=== PATIENT | female | born 1955 | race Two or more races ===

== ENCOUNTER 2024-05-31 12:51 | Inpatient (IN) | payer OTHER, MEDICARE, SELFPAY ==
[2024-05-31 12:51] VITALS: BP 145/82; PULSE 68; RESP 16; TEMP 36.7; O2SAT 99
--- NOTE | 2024-05-31 12:54 | EDNOTE_ITS ---
ED General RME/HPI General Chief complaint: Extremity Injury, Lower Stated complaint: FALL Time Seen by Provider: 05/31/24 12:54 Arrival date/time: 05/31/24 12:51 RME / HPI RME / HPI narrative: 68-year-old female patient with significant history of hypertension, came in for evaluation regarding ground-level fall. Patient lost balance and fell forward resulting into pain and swelling to the left upper thigh/hip, severity severe. Patient is unable to move due to pain. Patient denies any LOC, denies any neck pain denies any other complaints. No medication was taken prior to arrival. Patient is not taking any blood thinner. Related Data Home Medications ?Medication ?Instructions ?Recorded ?Confirmed hydrochlorothiazide 25 mg tablet 25 mg PO QAM 07/01/20 07/01/20 lisinopril 20 mg tablet 20 mg PO QDAY 07/01/20 07/01/20 metformin 500 mg tablet 500 mg PO BID 07/01/20 07/01/20 zolpidem 10 mg tablet (Ambien) 10 mg PO HS 07/01/20 07/01/20 Previous Rx's ?Medication ?Instructions ?Recorded cyclobenzaprine 5 mg tablet 5 mg PO Q8H #7 tabs 12/31/23 docusate sodium 100 mg capsule 100 mg PO QDAY PRN constipation 12/31/23 (Stool Softener) #30 caps Allergies Allergy/AdvReac Type Severity Reaction Status Date / Time No Known Allergies Allergy Verified 05/31/24 13:25 Review of Systems Review of Systems Narrative Review of Systems: Review of system reviewed and within normal limits except mentioned in HPI ED Exam Narrative Physical exam: VITAL SIGNS: Reviewed. GENERAL APPEARANCE: Alert and interactive, follows commands, no acute distress, HEAD AND FACE: Non-traumatic. ENT: PERRL, pink conjunctivitis, eyelid no trauma, Mucous membrane moist. NECK: Supple, nontender, no nuchal rigidity. CHEST: No tenderness, no crepitus, no paradoxical movement, no retractions. LUNGS: Clear, well ventilated, symmetric, no rales, no wheezing, no ronchi, no stridor, good breath sounds bilaterally. HEART: Regular rate, regular rhythm, no murmur, no gallops. ABDOMEN: Soft, positive bowel sounds, nondistended, no guarding, nontender, no rebound, no masses, RECTAL: Deferred. GENITAL: Deferred. NEUROLOGICAL: Gross motor function intact sensory function intact, Appropriate for age. MUSCULOSKELETAL: low back nontender, full range of motion. EXTREMITIES: Left hip tenderness, externally rotated, and shortened lower extremity, limitation range of motion. SKIN: Color pink, dry, no rash, no lacerations, no abrasions, no contusions. LYMPHATICS: Deferred. Course Quality Measures none Orders Category Date Time Status COVID-19 Screening Questionnaire NOW Care 05/31/24 15:35 Active Decision to Admit X1 Care 05/31/24 15:35 Active EKG (ED ONLY) *Do not use* NOW Care 05/31/24 12:59 Active [place] Routine Care 05/31/24 14:48 Ordered Consult to Orthopedic Stat Cons 05/31/24 14:[address] head/brain wo con Stat Exams 05/31/24 12:58 Completed EKG (ED Only) Stat Exams 05/31/24 12:58 Draft XR chest 1V Stat Exams 05/31/24 12:59 Completed XR femur LT 2V Stat Exams 05/31/24 12:58 Completed XR hip LT w pelvis 2-3V Stat Exams 05/31/24 12:58 Completed B-Type Natriuretic Peptide Stat Lab 05/31/24 14:10 Completed CBC Stat Lab 05/31/24 14:10 Completed Comprehensive Metabolic Panel Stat Lab 05/31/24 14:10 Completed Partial Thromboplastin Time Stat Lab 05/31/24 14:10 Completed Prothrombin Time with INR Stat Lab 05/31/24 14:10 Completed Troponin I Stat Lab 05/31/24 14:10 Completed Urinalysis, C/S if Indicated Stat Lab 05/31/24 12:59 Ordered Morphine Inj Med 05/31/24 13:00 Discontinued 4 mg IVP X1 ONE Morphine Inj Med 05/31/24 15:25 Discontinued 4 mg IVP X1 ONE Ondansetron Odt [Zofran Odt] Med 05/31/24 13:00 Discontinued 4 mg PO X1 ONE Vital Signs Vital signs: Vital Signs Temperature 98.0 F 05/31/24 12:51 Pulse Rate 68 05/31/24 12:51 Respiratory Rate 16 05/31/24 12:51 Blood Pressure 145/82 H 05/31/24 12:51 Pulse Oximetry (%) 99 05/31/24 12:51 Oxygen Delivery Method Room Air 05/31/24 12:51 [facility] Patient data External records reviewed:: None Clinical information provided by:: patient and family Social determinants that could affect healthcare access:: none Patient has the following chronic illnesses:: Hypertension diabetes mellitus How is presenting disease/condition affected by chronic disease/condition?: u neffected by Evaluation data The following diagnostics were reviewed and interpreted by me:: lab results, radiology exam(s) and EKG tracing(s) Lab and/or radiology exams considered but not ordered:: None Interpretation Summary: EKG showed normal sinus rhythm, ventricular rate of 78 bpm, no ST segment elevation or depression noted. Chest x-ray came back unremarkable. Laboratory workup came back unremarkable x-ray of the hip showed intertrochanteric fracture of the left femur. CT scan of the head came back normal. Results discussed with them Medications Medications considered but not ordered:: None 1 Medication administrations:: Medication Administration History Discontinued Medications Morphine Sulfate (Morphine Sulf Inj 10 Mg/Ml Vial) 4 mg IVP X1 ONE Stop: 05/31/24 13:01 Last Admin: 05/31/24 14:07 Dose: 4 mg Documented By: ADDIS Comments: pt unavailable and no access Morphine Sulfate (Morphine Sulf Inj 10 Mg/Ml Vial) 4 mg IVP X1 ONE Stop: 05/31/24 15:26 Ondansetron HCl (Ondansetron Odt 4 Mg Tabrap) 4 mg PO X1 ONE; Protocol Stop: 05/31/24 13:01 Last Admin: 05/31/24 14:08 Dose: 4 mg Documented By: ADDIS Morphine and Zofran Consultations Consultation(s) initiated? (list below): Yes Consultation #1 (Physician, Specialty, Details): Dr. Montoya, orthopedic surgeon on-call, examined the patient in the emergency room Diagnosis Differential Diagnosis ED Complaint MDM: Fall, intertrochanteric fracture left femur, femur fracture Most likely diagnosis given after review of the tests above:: Fall, intertrochanteric fracture left femur Admission Indicated Admission indicated?: indicated Explain why admission is indicated or not indicated:: Patient is to be admitted for further management. Admission Request Was there a request for admission?: Yes Admission Attestation Admission request attestation: Discussed case with [Dr. Castellon] from Hospitalist service regarding admission. Discussed patients ED course, exam findings, labs, and radiology results. The Hospitalist [agrees,] to accept the patient for admission. Disposition Plan Disposition Plan: Admit Medical Decision Making MDM Narrative MDM Narrative: 68-year-old female patient with significant history of hypertension, came in for evaluation regarding ground-level fall. Patient lost balance and fell forward resulting into pain and swelling to the left upper thigh/hip, severity severe. Patient is unable to move due to pain. Patient denies any LOC, denies any neck pain denies any other complaints. No medication was taken prior to arrival. Patient is not taking any blood thinner. CT scan of the head came back unremarkable x-ray of the left hip showed intertrochanteric fracture of the left femur. Laboratory workup all came back unremarkable. [place] catheter was inserted. Consulted Dr. Montoya orthopedic surgeon on-call, who will do surgery tomorrow as planned. Plan of care discussed with the family, who agrees to be admitted. Differential Diagnosis Differential Diagnosis: Fall, intertrochanteric fracture left femur, femur fracture Lab Data 05/31/24 14:10 05/31/24 14:10 Labs: Lab Results 05/31/24 Range/Units 14:10 WBC 8.3 (3.6-11.0) Thou/mm3 RBC 3.94 L (4.00-5.20) Miln/mm3 Hgb 11.0 L (12.0-16.0) g/dL Hct 34.1 L (36.0-46.0) % MCV 87 (80-100) fL MCH 27.9 (25.0-35.0) pg MCHC 32.3 (31.0-37.0) g/dl RDW Std Deviation 45.8 (36.4-46.3) fL Plt Count 251 (140-440) Thou/mm3 Neut % (Auto) 74 (37-80) % Lymph % (Auto) 19 (10-50) % [place] % (Auto) 5 (0-12) % Eos % (Auto) 1 (0-10) % Baso % (Auto) 0 (0-2.5) % Neut # (Auto) 6.2 (1.8-7.7) Thou/mm3 Lymph # (Auto) 1.6 (1.0-4.8) Thou/mm3 Newton # (Auto) 0.4 (0.0-0.8) Thou/mm3 Eos # (Auto) 0.1 (0.0-0.5) Thou/mm3 Baso # (Auto) 0.0 (0.0-0.2) Thou/mm3 Immature Gran # (Auto) 0.06 H (0.00-0.00) Thou/mm3 Absolute Nucleated RBC 0.00 (0.00-0.00) Thou/mm3 Immature Gran % 1 H (0-0) % Nucleated RBC % 0 (0) /100 WBC PT 10.3 (9.0-12.2) Seconds INR 0.9 (0.9-1.3) APTT 24.5 (22.0-36.0) Seconds Sodium 140 (136-145) mMol/L Potassium 3.9 (3.4-5.1) mMol/L Chloride 107 (98-107) mMol/L Carbon Dioxide 24.3 (20.0-31.0) mMol/L Anion Gap 9 (7-16) BUN 22 (9-23) mg/dL Creatinine 1.0 (0.6-1.3) mg/dL Estim Creat Clear Calc 49.7 L (>60) mL/min eGFR > 60 (60 - ) See Note BUN/Creatinine Ratio 22 H (12-20) Ratio Glucose 197 H (74-106) mg/dL Calculated Osmolality 287 (275-295) Calcium 9.7 (8.3-10.6) mg/dL Corrected Calcium 9.7 (8.5-10.1) mg/dL Total Bilirubin 0.3 (0.3-1.2) mg/dL AST 39 H (0-34) U/L ALT 54 H (10-49) U/L Alkaline Phosphatase 151 H (46-116) U/L Troponin I < 0.020 (0.0-0.045) ng/mL B-Natriuretic Peptide 183 H (0-100) pg/mL Total Protein 6.6 (5.7-8.2) gm/dL Albumin 4.2 (3.4-4.8) gm/dL Globulin 2.4 (2.3-3.5) gm/dL Albumin/Globulin Ratio 1.8 (1.2-2.2) Discharge Plan Plan Patient Disposition: Admit Acute Care w/in Hospital Disposition Comment: stable Prescriptions/Referrals Prescriptions/Med Rec: No Action metformin 500 mg Tablet 500 mg PO BID lisinopril 20 mg Tablet 20 mg PO QDAY hydrochlorothiazide 25 mg Tablet 25 mg PO QAM zolpidem [Ambien] 10 mg Tablet 10 mg PO HS cyclobenzaprine 5 mg tablet 5 mg PO Q8H Qty: 7 0RF docusate sodium [Stool Softener] 100 mg capsule 100 mg PO QDAY PRN (Reason: constipation) Qty: 30 0RF Referrals: Agustín Luna MD [Primary Care Provider] - In 1 week Problem List Clinical Impression: Closed intertrochanteric fracture of femur, Fall Patient/Caregiver Discharge Instructions Print Language: Solomon Islander Stand Alone Forms: Juli Award Info., Patient Portal Info Letter
--- NOTE | 2024-05-31 12:58 | EKG_ITS ---
[facility] Test Date: 2024-05-31 Pat Name: KING SU Department: Room: - Gender: Female Visual Merchandising Assistant: : [id number] Requested By: Destin Sánchez Order Number: [id number] Reading MD: Destin Sánchez Measurements Intervals [place] Rate: 78 P: 54 IN: 184 QRS: -37 QRSD: 98 T: -9 QT: 272 QTc: 311 Interpretive Statements SINUS RHYTHM MARKED LEFT AXIS DEVIATION [QRS AXIS < -30] POSSIBLE ANTERIOR MYOCARDIAL INFARCTION , OF INDETERMINATE AGE [30 ms Q WAVE IN V3/V4, OR R < 0.2 mV IN V4] No previous ECG available for comparison /store/S0/[id number]/ecg/[id number].pdf
--- NOTE | 2024-05-31 12:58 | XR_ITS ---
Examination: CT brain head without contrast. 2-D sagittal coronal reconstructions Date and time of exam:May 31, 2024 1341 hours INDICATIONS: Patient fell today with injury to the head, head pain CTDI: vol (mGy):46.9 DLP: (mGycm):943 Technique: Multiple CT axial sections of the brain have been obtained, 5 mm slice thickness. Contrast has not been administered. 2-D sagittal, coronal reconstructions have been obtained Low dose protocols were performed. One or more of the following dose reduction techniques were used; automated exposure control, adjustment of the mA and/or KV according to patient size, use of iterative reconstruction technique. Findings: No significant ventricular enlargement. Intra-axial or extra-axial hemorrhage density is not seen. No mass effect or midline shift Basal cisterns are not remarkable. Fourth ventricle is midline. Cranial vault intact. Impression: Negative for acute hemorrhage, mass effect or midline shift
--- NOTE | 2024-05-31 12:58 | XR_ITS ---
Examination: Left femur 2 views Technique one AP lateral left femur 2 views Exam date and time: 12/29/2023 1324 hours INDICATIONS: Patient fell today with injury to the hip, hip pain and femur pain FINDINGS: Acute intertrochanteric fracture left hip 2 20 mm separation at the main fracture site Shaft of the femur intact IMPRESSION: Acute intertrochanteric fracture left hip
--- NOTE | 2024-05-31 12:58 | XR_ITS ---
Examination:Left hip AP, lateral, AP pelvis 3 views Technique: Hip AP lateral, AP pelvis, 3 views Exam date and time:May 31, 2024 1324 hours INDICATIONS: Patient fell today with into the hip, left hip pain FINDINGS: Prominent osteopenia Acute intertrochanteric fracture left hip, up to 20 mm separation at the main fracture site No hip dislocation Bones of the pelvis intact IMPRESSION: Acute intertrochanteric fracture left hip.
--- NOTE | 2024-05-31 12:59 | XR_ITS ---
Examination: AP chest single view Technique one AP portable upright chest single view Exam date and time: May 31, 2024 1327 hours Comparison February 03, 2022 INDICATIONS: Patient fell today with injury to the chest, chest pain FINDINGS: No pneumothorax Mild prominence left ventricle Clavicles ribs appear intact IMPRESSION: No pneumothorax pulmonary contusion or hemothorax
[2024-05-31 13:22] VITALS: PULSE 68; RESP 18; O2SAT 98; BMI 30.3
--- NOTE | 2024-05-31 13:29 | PC.NURSE ---
PT BIBA FROM HOME, PT REPORTS SHE WAS WALKING WHEN SHE FELL FACE FIRST. PT DID NOT HAVE ANY OC OR ON BLOOD THINNERS. PT IS COMPLAINING OF 10/10 PAIN. XRAY AT BESIDE CURRENTLY
[2024-05-31] MEDS: MORPHINE SULF INJ 10 MG/ML VIAL 4 MG IVP ×2 (14:07→15:41)
[2024-05-31] MEDS: ONDANSETRON ODT 4 MG TABRAP PO (14:08)
[2024-05-31 14:26] LABS: Basophils % (Auto) 0 % (0-2.5); Eosinophils # (Auto) 0.1 Thou/mm3 (0.0-0.5); Eosinophils % (Auto) 1 % (0-10); Hematocrit 34.1 % (36.0-46.0); Immature Granulocytes % (Auto) 1 % (0-0); Immature Granulocytes Auto 0.06 Thou/mm3 (0.00-0.00); Lymphocytes # (Auto) 1.6 Thou/mm3 (1.0-4.8); Lymphocytes % (Auto) 19 % (10-50); Mean Corpuscular HGB Conc 32.3 g/dl (31.0-37.0); Mean Corpuscular Hemoglobin 27.9 pg (25.0-35.0); Mean Corpuscular Volume 87 fL (80-100); Monocytes # (Auto) 0.4 Thou/mm3 (0.0-0.8); Monocytes % (Auto) 5 % (0-12); Neutrophils # (Auto) 6.2 Thou/mm3 (1.8-7.7); Neutrophils % (Auto) 74 % (37-80); Nucleated Red Blood Cell % 0 /100 WBC (0); Platelet Count 251 Thou/mm3 (140-440); RDW Standard Deviation 45.8 fL (36.4-46.3); Red Blood Count 3.94 Miln/mm3 (4.00-5.20); White Blood Count 8.3 Thou/mm3 (3.6-11.0)
[2024-05-31 14:49] LABS: INR 0.9 (0.9-1.3); Partial Thromboplastin Time 24.5 Seconds (22.0-36.0); Prothrombin Time 10.3 Seconds (9.0-12.2)
[2024-05-31 14:56] LABS: Alanine Aminotransferase 54 U/L (10-49); Albumin, Serum 4.2 gm/dL (3.4-4.8); Albumin/Globulin Ratio 1.8 (1.2-2.2); Alkaline Phosphatase 151 U/L (46-116); Anion Gap 9 (7-16); Aspartate Amino Transferase 39 U/L (0-34); BUN/Creatinine Ratio 22 Ratio (12-20); Bilirubin,Total 0.3 mg/dL (0.3-1.2); Blood Urea Nitrogen 22 mg/dL (9-23); Calcium 9.7 mg/dL (8.3-10.6); Calcium (Corrected) 9.7 mg/dL (8.5-10.1); Carbon Dioxide 24.3 mMol/L (20.0-31.0); Chloride 107 mMol/L (98-107); Estimated Creatinine Clearance 49.7 mL/min (>60); Globulin 2.4 gm/dL (2.3-3.5); Glucose 197 mg/dL (74-106); Osmolality,Calculated 287 (275-295); Potassium 3.9 mMol/L (3.4-5.1); Sodium 140 mMol/L (136-145); Total Protein 6.6 gm/dL (5.7-8.2); Troponin I < 0.020 ng/mL (0.0-0.045); eGFR > 60 See Note
[2024-05-31 15:06] LABS: B-Type Natriuretic Peptide 183 pg/mL (0-100)
[2024-05-31 16:03] VITALS: BP 125/66; PULSE 83; RESP 19; TEMP 36.8; O2SAT 94
--- NOTE | 2024-05-31 17:09 | ESCONSULT_ITS ---
<Statement entered by Vladimir Peguero MD - 05/31/24 22:27> The patient is evaluated by me along with resident physician she is a 68-year-old lady with history of diabetes mellitus hypertension but no previous cardiac history admitted to the hospital mechanical fall and fractured her hip clinically she has no evidence of heart failure no anginal symptoms or ischemic heart disease symptoms however because of risk factors for cardiovascular disease recommending a cardiac echo which will be performed in the morning if echocardiogram showed normal ejection fraction going give cardiac clearance clinically appears to be low cardiac risk for orthopedic surgery. Proceed with surgery as scheduled and will do early cardiac echo and review the results. I agree with the assessment plan treatment recommendation as documented by resident physician Dr. Macario PGY2. HPI Data of Consult Primary Care Provider: Agustín Luna MD Consult Narrative History of present illness: 83-dspr-xuxp-old female patient (Jehovah witness, no transfusions) with significant medical history for TIA, hypertension, diabetes type 2, neuropathy hyperlipidemia and chronic back pain due to spinal stenosis was brought in to ED after ground-level fall. Patient stated that the loss was due to loss of balance, denied loss of consciousness or hitting her head on the floor. Patient denied dizziness, blurry vision, palpitations, chest pain/pressure, abdominal pain, chills, fevers or other associate symptoms. ED vitals were unremarkable, labs were significant for Hgb 11, MCV 87, HCT 34, glucose 197, AST 39, ALT 54, ALP 151, BNP 183. Chest x-ray and head CT were negative. Femur x-ray and hip pelvis x-ray indicated acute intertrochanteric fracture of left hip. Orthopedist Dr. Hemphill was consulted and cardiology team was consulted for clearance. Medical Hx: TIA, DM2, HLD, HTN, neuropathy, spinal stenosis Surgical Hx: cholecystectomy, hysterectomy, bone spur, gastric bypass Medications: Lisinopril 20 mg, gabapentin 100 mg, HCTZ 25 mg, atorvastatin 10 mg, metformin 500 mg, Ambien, tizanidine Social Hx: Denied smoking cigarette, drinking alcohol or using other illicit drugs. Patient is Jehovah witness and declines any blood transfusion if needed Allergies: NKDA CODE STATUS: DNR/DNI 05/31/24: Given patient's medical history for DM2, TIA, HLD, HTN and revised cardiac risk index for preoperative risk of 1 point, gives her 6% risk of major cardiac event. Echo cardiogram will be ordered and we will follow-up with EKG. cc:: cc: Review of Systems Review of Systems Systems Reviewed: All systems reviewed, normal except as documented Exam Vital Signs Temp Pulse Resp BP Pulse Ox O2 Del Method 98.2 F 83 19 125/66 94 L Room Air 05/31/24 16:03 05/31/24 16:03 05/31/24 16:03 05/31/24 16:03 05/31/24 16:03 05/31/24 16:03 Narrative Exam Constitutional: well-developed, well-nourished, in mild distress, lying in bed HEENT: NCAT, EOMI, reactive round pupils b/l, patent nares b/l, moist mucous membranes Lung: CTAB, no wheezing, no rhonchi Heart: Regular S1S2, no murmurs, gallops, or rubs Abdomen: Soft, non-distended, non-tender, bowel sounds present throughout Extremities: Left hip is tender on palpation, left leg is externally rotated, shortened with limited range of motion, no edema, LE pulses present b/l, Neurologic: No focal sensory or motor deficits noted, AOx3, appropriate affect Skin: Warm, dry, no lesions or rashes noted Results Labs 05/31/24 14:10 05/31/24 14:10 Labs: Short CBC 05/31/24 Range/Units 14:10 WBC 8.3 (3.6-11.0) Thou/mm3 Hgb 11.0 L (12.0-16.0) g/dL Hct 34.1 L (36.0-46.0) % Plt Count 251 (140-440) Thou/mm3 BMP 05/31/24 14:10 Sodium 140 Potassium 3.9 Chloride 107 Carbon Dioxide 24.3 BUN 22 Creatinine 1.0 Glucose 197 H Calcium 9.7 Cardiac Enzymes 05/31/24 Range/Units 14:10 Troponin I < 0.020 (0.0-0.045) ng/mL Liver Function 05/31/24 Range/Units 14:10 Total Bilirubin 0.3 (0.3-1.2) mg/dL AST 39 H (0-34) U/L ALT 54 H (10-49) U/L Alkaline Phosphatase 151 H (46-116) U/L Albumin 4.2 (3.4-4.8) gm/dL Quality Measures Quality Measures none Advance care planning discussed with:: other Medications Home Medications and Allergies Home Medications ?Medication ?Instructions ?Recorded ?Confirmed ?Type hydrochlorothiazide 25 mg tablet 25 mg PO QAM 07/01/20 07/01/20 History lisinopril 20 mg tablet 20 mg PO QDAY 07/01/20 07/01/20 History metformin 500 mg tablet 500 mg PO BID 07/01/20 07/01/20 History zolpidem 10 mg tablet (Ambien) 10 mg PO HS 07/01/20 07/01/20 History Allergies Allergy/AdvReac Type Severity Reaction Status Date / Time No Known Allergies Allergy Verified 05/31/24 13:25 Visit Medications Discontinued Medications Morphine Sulfate (Morphine Sulf Inj 10 Mg/Ml Vial) 4 mg IVP X1 ONE Stop: 05/31/24 13:01 Last Admin: 05/31/24 14:07 Dose: 4 mg Morphine Sulfate (Morphine Sulf Inj 10 Mg/Ml Vial) 4 mg IVP X1 ONE Stop: 05/31/24 15:26 Last Admin: 05/31/24 15:41 Dose: 4 mg Ondansetron HCl (Ondansetron Odt 4 Mg Tabrap) 4 mg PO X1 ONE; Protocol Stop: 05/31/24 13:01 Last Admin: 05/31/24 14:08 Dose: 4 mg Assessment & Plan Plan 22-ec[age]bfwt-old female patient (Jehovah witness, no transfusions) with significant medical history for TIA, hypertension, diabetes type 2, neuropathy hyperlipidemia and chronic back pain due to spinal stenosis was brought in to ED after ground-level fall. Orthopedist Dr. Hemphill consulted. #Cardiac clearance for #Ground-level fall #Acute intertrochanteric fracture of left hip Patient with history of spinal stenosis, on Ambien and cyclobenzaprine On admission patient stated she lost balance and fell forward landing on her left side X-ray of femur and hip indicative of left intertrochanteric fracture Orthopedist Dr. Hemphill onboard Plan: ? N.p.o. at midnight ? Morphine and [place] for pain management ? Patient to undergo ORIF by Dr. Hemphill ? Revised cardiac risk index or preoperative for preoperative risk score of 1 ? Echocardiogram ordered for cardiac clearance #Hypertension #Hyperlipidemia #Diabetes mellitus type 2 #History of TIA -Management per primary team This patient care was discussed with my attending Dr. Sudhir Wayne MD PGY-2 Disclaimer: Minor errors in supervisor drilling and shooting may be present since this note was dictated by speech recognition software.
--- NOTE | 2024-05-31 17:09 | ECHO_ITS ---
Transthoracic Echo Report Ht (in): 62 Wt (lb): 166 Exam Location: Portable Status: Emergency Supervisor [employer]: Kindra Reynolds Indications: Procedure Performed: BP: 106 / 60 HR: 70 Rhythm: Sinus Technical Quality: Fair MEASUREMENTS (Male / Female) Normal Values 2D ECHO LV Diastolic Diameter PLAX 3.9 cm 4.2 - 5.9 / 3.9 - 5.3 cm LV Systolic Diameter PLAX 2.6 cm IVS Diastolic Thickness 1.1 cm 0.6 - 1.0 / 0.6 - 0.9 cm LVPW Diastolic Thickness 1.2 cm 0.6 - 1.0 / 0.6 - 0.9 cm LV Relative Wall Thickness 0.6 LVOT Diameter 2.0 cm LA Volume Index 19.3 cm?/m? 16 - 28 cm?/m? Ascending Aorta Diameter 3.1 cm M-MODE Aortic Root Diameter MM 2.7 cm LA Systolic Diameter MM 3.5 cm LA Ao Ratio MM 1.3 AV Cusp Separation MM 1.8 cm DOPPLER AV Peak Velocity 154.0 cm/s AV Peak Gradient 9.5 mmHg AV Mean Gradient 6.0 mmHg AV Velocity Time Integral 32.6 cm LVOT Peak Velocity 120.0 cm/s LVOT Peak Gradient 5.8 mmHg LVOT Velocity Time Integral 30.5 cm LVOT Cardiac Index 3641.4 cm?/min?m? AV Area Cont Eq vti 2.9 cm? AV Area Cont Eq pk 2.4 cm? MV Peak Velocity 128.0 cm/s MV Peak Gradient 6.6 mmHg MV Mean Velocity 72.8 cm/s MV Mean Gradient 2.0 mmHg MV Area PHT 2.7 cm? Mitral E Point Velocity 82.9 cm/s Mitral A Point Velocity 130.0 cm/s Mitral E to A Ratio 0.6 LV E' Lateral Velocity 9.1 cm/s Mitral E to LV E' Lateral Ratio 9.1 LV E' Septal Velocity 8.7 cm/s Mitral E to LV E' Septal Ratio 9.5 TR Peak Velocity 231.0 cm/s TR Peak Gradient 21.3 mmHg FINDINGS Left Ventricle Normal left ventricular size, systolic function with no obvious regional wall motion abnormalities. Mild LVH. The ejection fraction is visually estimated at 60-65%. Right Ventricle The right ventricle is normal in size and systolic function. The estimated right ventricular systoli c pressure, 26mmHg. RAP 5. Left Atrium The left atrium is normal by two-dimensional, color flow and Doppler imaging with no structural abnormalities, no thrombus formation present. Right Atrium The right atrium is normal by two-dimensional imaging, color flow and Doppler imaging with no struct ural abnormalities, no thrombus formation present. Atrial Septum The interatrial septum appears normal with no evidence of a shunt. Aorta The aorta is normal by two-dimensional, color flow and Doppler interrogation. Mitral Valve The mitral valve is mildly MAC. There is trace mitral valve regurgitation. Aortic Valve The aortic valve is trileaflet. Mild sclerosis without stenosis. There is trace aortic valve regurgi tation. Tricuspid Valve The tricuspid valve is normal by two-dimensional, color flow and Doppler interrogation. There is tra ce tricuspid valve regurgitation. Pulmonic Valve There is no significant pulmonic valve regurgitation. Vessels The pulmonary artery appears normal. The inferior vena cava pulmonary and hepatic veins appear earl l. Pericardium The pericardium is normal by two-dimensional imaging. There is no significant pericardial effusion. CONCLUSIONS Indication: Cardiac clearance Normal LV size and function. Mild LVH. Stage I diastolic dysfunction. Estimated EF 60-65% Normal RV sizea and function. Mild MAC. Trace mitral and trace tricuspid regurgitation Mild AV sclerosis without stenosis. Patience Fierro (Electronically Signed) Final Date: 01 June 2024 12:01
[2024-05-31 17:26] VITALS: BP 122/60; PULSE 80; RESP 19; TEMP 36.8; O2SAT 98
--- NOTE | 2024-05-31 17:27 | ESHP_ITS ---
<Statement entered by Ravinder Sierra MD - 05/31/24 20:00> A 68-year-old female patient Jehovah witness with past medical history of hypertension, diabetes mellitus, spinal stenosis reportedly, presented to the ED due to left hip pain that started after she fell down today at ground-level. Patient reported that she had a mechanical fall while she was going to the kitchen. Patient denied any syncope or presyncope episodes, denied any heart racing, denied any chest pain loss of balance, or blurry vision. After she fell down she reported significant pain in her left hip in which she called her son to help her to pick her up however there was severe pain that was intolerable for that reason she called for ambulance. Of note patient had fracture of her right clavicle after she fell down in December this year, on questioning patient reported that she started to use a cane in the last few years after she was diagnosed with spinal stenosis and she is following up with a neurologist. She also reported that she has chronic burning sensation and pins and needle sensation in her right lower extremity that has been going on for years. Patient denied hitting her head or her neck and denied any neck pain or tenderness. In evaluation patient seems to be a little bit lethargic most likely secondary to the morphine that was given atthe ED, however she was saturating 92% on room air with respiratory rate of 14 and pulse of 76. Blood pressure was 144/79. Hemoglobin stable at 11, chest x-ray was negative for any infiltrate, left hip x-ray and pelvic x-ray showed fracture of the left hip intertrochanteric fracture. The orthopedic surgeon Dr. Montoya was consulted he recommended to admit the patient and to consult cardiology for clearance for surgery. Brain CT scan was negative for any hemorrhage or mass effect. Assessment and plan #Left hip intertrochanteric fracture #Ground-level fall PT referral, cardiology consultation for clearance and echo were ordered. N.p.o. after midnight for possible surgery tomorrow. Upon management scratch that pain management with Tylenol, [place], morphine as per protocol. Upon discharge recommend the patient to follow-up with her primary care physician to the screening for possible osteoporosis #Chronic normocytic anemia #Yazidi Patient expressed her wishes that she does not want any blood transfusion. Hemoglobin stable at 11. Iron panel Folate, B12 levels #History of spinal stenosis Plan Follow-up with your primary care physician and neurosurgeon for further recommendations. #CODE STATUS: DNR/DNI - Patient's plan and care discussed with my attending, Dr. Fidencio Sierra MD Internal Medicine PGY-2 Documentation for date of: 05/31/24 HPI History of Present Illness History of present illness: Colette Sun is a 68 F w/ PMHX of HTN, DM, spinal stenosis who presents with L hip pain after a ground level fall. Patient reports getting up to go grab a snack after watching tv. As she was walking to the kitchen she tripped and fell on her hip. She denies LOC, feeling dizzy beforehand. She reports previous fall this year in December where she was seen in the ED here. Small clavicle fx with no displacement. She states she has developed weakness in her legs for the past year. She also reports chronic burning sensation in her right leg. No numbness. She uses a cane to walk for the past 3 years and a walker at times. Normally its when she proselytes for her orthodox. She was seen by a Neurosurgeon who wants to perform surgery on her. Other than her hip pain she has no other complaints. She reports being on doxycycline for the past 3 days for a cough that was prescribed to her by her doctor. She denies fever, cough, nasal congestion or having pneumonia on CXR. She is also Yazidi and refuses blood products even if it would save her life. In the ED she was given 8mg of morphine. Xray showed L intertrochanteric fx. Dr. Hemphill was consulted who recommended surgery tomorrow. Dr. Peguero was also consulted for cardiac clearance pre op. Vitals signs were stable besides hypertension at 145/82. Labs were within normal limits except for HGB 11. CXR showed no PNA or fx. Head CT(-). EKG NSR. All: NKDA PMH: as stated above PSH: cholecystectomy, hysterectomy, bone spur, gastric bypass FH: No FH of osteoporosis Meds: tizanidine, HCTZ, lisinopril, metformin social: Worked at [email or web address], lives by herself, Denies Etoh, smoking or drug use, Jehovahs witness ROS: Consitutional: Denies f/c HEENT: No cough CV: No chest pain or palpitations Pulm: No SOB GI: No N/V Neuro: No HAMILTON or blurry vision Psych: reports anxiety Exam Vital Signs Temp Pulse Resp BP Pulse Ox O2 Del Method 98.2 F 80 19 122/60 98 Room Air 05/31/24 17:26 05/31/24 17:26 05/31/24 17:26 05/31/24 17:26 05/31/24 17:26 05/31/24 17:26 Narrative Exam General: Well appearing, well nourished, in no distress HEENT: Normocephalic, atraumatic, conjunctiva clear, sclera non-icteric, EOM intact Heart: Regular rate and rhythm, no murmur or gallop Lungs: Clear to auscultation, no wheezes Abdomen: soft, nontender, non distended Extremities: Sensation is grossly intact of L5 b/l LE, <2 sec cap refill b/l LE, tenderness of anterior L thigh, limited ROM due to pain of LLE Neurologic: Moves all extremities spontaneously, A&O x3 Psychiatric: Cooperative, normal mood and affect. Results: Labs 06/01/24 04:53 06/01/24 04:53 Labs: Short CBC 05/31/24 Range/Units 14:10 WBC 8.3 (3.6-11.0) Thou/mm3 Hgb 11.0 L (12.0-16.0) g/dL Hct 34.1 L (36.0-46.0) % Plt Count 251 (140-440) Thou/mm3 BMP 05/31/24 14:10 Sodium 140 Potassium 3.9 Chloride 107 Carbon Dioxide 24.3 BUN 22 Creatinine 1.0 Glucose 197 H Calcium 9.7 Cardiac Enzymes 05/31/24 Range/Units 14:10 Troponin I < 0.020 (0.0-0.045) ng/mL Liver Function 05/31/24 Range/Units 14:10 Total Bilirubin 0.3 (0.3-1.2) mg/dL AST 39 H (0-34) U/L ALT 54 H (10-49) U/L Alkaline Phosphatase 151 H (46-116) U/L Albumin 4.2 (3.4-4.8) gm/dL Quality Measures Quality Measures VTE prophylaxis Advance care planning discussed with:: patient Medications Home Medications and Allergies Home Medications ?Medication ?Instructions ?Recorded ?Confirmed ?Type hydrochlorothiazide 25 mg tablet 25 mg PO QAM 07/01/20 07/01/20 History lisinopril 20 mg tablet 20 mg PO QDAY 07/01/20 07/01/20 History metformin 500 mg tablet 500 mg PO BID 07/01/20 07/01/20 History zolpidem 10 mg tablet (Ambien) 10 mg PO HS 07/01/20 07/01/20 History Allergies Allergy/AdvReac Type Severity Reaction Status Date / Time No Known Allergies Allergy Verified 05/31/24 13:25 Visit Medications Acetaminophen (Acetaminophen 325 Mg Tablet) 650 mg PO Q6H PRN PRN Reason: Fever >100.3 Stop: 06/30/24 17:03 Acetaminophen (Acetaminophen 325 Mg Tablet) 650 mg PO Q6H PRN PRN Reason: PAIN SCALE 1-3 (mild Stop: 06/30/24 17:03 Dextrose (Dextrose 50%-Water Inj 50 Ml Syringe) 25 ml IV Q15MIN PRN PRN Reason: BG 50-70 responsive npo pt Stop: 06/30/24 17:11 Dextrose (Dextrose 50%-Water Inj 50 Ml Syringe) 50 ml IV Q15MIN PRN PRN Reason: BG <50 OR BG <70 & pt unresponsive Stop: 06/30/24 17:11 Gabapentin (Gabapentin 100 Mg Capsule) 100 mg PO QPM [facility] Stop: 07/01/24 20:59 Glucagon (Glucagon Inj 1 Mg Vial) 1 mg IM Q15MIN PRN PRN Reason: BG <70, and no IV access Insulin Glargine (Insulin Glargine (Lantus) 5 Unit/0.05 Ml (Per 5 Units)) 8 unit SC QPM [facility] Stop: 06/30/24 20:59 Insulin Human Lispro (Insulin Lispro (Admelog) 1 Unit/0.01 Ml Unit) 0 unit SC [facility]; Protocol Stop: 06/30/24 20:59 Melatonin (Melatonin 3 Mg Tablet) 6 mg PO HS [facility] Stop: 06/30/24 20:59 Morphine Sulfate (Morphine Sulf Inj 10 Mg/Ml Vial) 2 mg IVP Q4H PRN PRN Reason: PAIN SCALE 7-10 (Severe Stop: 06/05/24 17:03 Ondansetron HCl (Ondansetron Inj 2 Mg/Ml Inj 2 Ml) 4 mg IV Q6H PRN; Protocol PRN Reason: NAUSEA OR VOMITING Stop: 06/30/24 17:03 Oxycodone/Acetaminophen (Oxycodone/Apap 5/325 Tablet) 1 tab PO Q6H PRN PRN Reason: PAIN SCALE 4-6 (Moderate Stop: 06/05/24 17:03 Tizanidine HCl (Tizanidine Hcl 2 Mg Tablet) 4 mg PO HS PRN PRN Reason: MUSCLE SPASMS Stop: 06/30/24 20:59 Discontinued Medications Morphine Sulfate (Morphine Sulf Inj 10 Mg/Ml Vial) 4 mg IVP X1 ONE Stop: 05/31/24 13:01 Last Admin: 05/31/24 14:07 Dose: 4 mg Morphine Sulfate (Morphine Sulf Inj 10 Mg/Ml Vial) 4 mg IVP X1 ONE Stop: 05/31/24 15:26 Last Admin: 05/31/24 15:41 Dose: 4 mg Ondansetron HCl (Ondansetron Odt 4 Mg Tabrap) 4 mg PO X1 ONE; Protocol Stop: 05/31/24 13:01 Last Admin: 05/31/24 14:08 Dose: 4 mg Assessment & Plan Plan Colette Sun is a 68 F w/ PMHX of HTN, DM, spinal stenosis who presents with L hip pain after a ground level fall. Xray showed intertrochanteric fracture L hip. Orthopedic surgery(Dr. Hemphill) was consulted who recommended surgery tomorrow pending cardiac clearance. #L Hip intertrochanteric fx #Ground level fall Mechanical fall this morning, no LOC, Head CT(-) CXR(-); no blood thinners Xray shows L intertrochanteric fx -Multimodal pain control -Echo pending -PT referral -Zofran PRN Nausea -NPO after MN #Chronic Normocytic Anemia Hgb 11 MCV 89 Zoroastrian, refuses blood products -iron panel -folate, B12 #Hx of HTN Home meds HCTZ 25mg po and lisinopril 20mg po Will hold morning of surgery #Hx of DM II A1c 8.2 10/04; on metformin 500mg BID at home -Diet carb cons low -SSI -repeat A1c -Basal 8u glargine #Hx of spinal stenosis Follows with Neurosurgery outpatient management Restart Tizanidine and Gabapentin Health Maintenance: Disp: Med/tele FEN: NPO after MN GI: not indicated DVT: SCDs Lines: PIV Code: DNR The patient's plan was discussed with attending Dr. Nicolas and senior residents Dr. Sierra and Marti Allen, DO PGY1 Internal Medicine Attending Provider Attestation/Addendum I have examined the patient, reviewed labs and imaging findings, discussed the case with the resident(s), and reviewed entered orders. I agree with the plan of care as outlined in this note, with these additional summaries/recommendations: Patient seen at bedside. Patient presented to the emergency department after a ground-level mechanical fall. She denies loss of consciousness or hitting her head and head CT within normal limits. Patient endorsing left hip pain and x- ray revealed acute intertrochanteric fracture of the left hip. Orthopedics was consulted and recommends admission for further management and surgical intervention. Start pain management. Appreciate Ortho recs. Start insulin sliding scale for diabetes mellitus type 2 and will resume home antihypertensives as tolerated. Bedrest and fall precautions. Patient updated on the plan and in agreement. Repeat chemistry and hematology panel in AM. Dr. Nicolas
--- NOTE | 2024-05-31 17:44 | PC.CC ---
Patient is a 68year-old female who presents to the hospital for a fall. Delicia ESCOBAR made [id number] contact with patient. ASW introduced self, role, and reason for visit. Patient appeared alert and oriented to self, location, and situation. Patient confirmed information on demographics and reports she lives alone. Per, patient prior to falling she was able to ambulate independently and complete her own ADLs. The use of the oxygen is new to the patient as she does not use oxygen at home. Patient receives primary care with Agustín Luna and uses [facility] for prescription medication. Patient's Next of Kin is her friend, Marcelo Hope . Upon discharge the patient wishes to return home if she is able to. support services rep to follow-up with any discharge needs.
[2024-05-31 20:04] VITALS: BP 155/70; PULSE 82; RESP 18; TEMP 37; O2SAT 96; BMI 30.6
[2024-05-31] MEDS: MELATONIN 3 MG TABLET 6 MG PO (21:33)
[2024-05-31] MEDS: INSULIN GLARGINE (Lantus) 5 UNIT/0.05 ML (PER 5 UNITS) 8 UNIT SC (21:35)
[2024-05-31] MEDS: INSULIN LISPRO (AdmeLOG) 1 UNIT/0.01 ML UNIT SC (21:36)
[2024-05-31] MEDS: MORPHINE SULF INJ 10 MG/ML VIAL 2 MG IVP (22:42)
[2024-06-01] VITALS (18 sets, daily range): BP systolic 102–146; BP diastolic 54–79; PULSE 70–103; RESP 14–97; TEMP 36.2–37.3; O2SAT 92–100
[2024-06-01 05:53] LABS: Basophils % (Auto) 0 % (0-2.5); Eosinophils # (Auto) 0.1 Thou/mm3 (0.0-0.5); Eosinophils % (Auto) 1 % (0-10); Hematocrit 30.5 % (36.0-46.0); Hemoglobin 10.1 g/dL (12.0-16.0); Immature Granulocytes % (Auto) 0 % (0-0); Immature Granulocytes Auto 0.03 Thou/mm3 (0.00-0.00); Lymphocytes # (Auto) 1.8 Thou/mm3 (1.0-4.8); Lymphocytes % (Auto) 24 % (10-50); Mean Corpuscular HGB Conc 33.1 g/dl (31.0-37.0); Mean Corpuscular Hemoglobin 28.6 pg (25.0-35.0); Mean Corpuscular Volume 86 fL (80-100); Monocytes # (Auto) 0.6 Thou/mm3 (0.0-0.8); Monocytes % (Auto) 9 % (0-12); Neutrophils # (Auto) 4.9 Thou/mm3 (1.8-7.7); Neutrophils % (Auto) 66 % (37-80); Nucleated Red Blood Cell % 0 /100 WBC (0); Platelet Count 221 Thou/mm3 (140-440); RDW Standard Deviation 45.8 fL (36.4-46.3); Red Blood Count 3.53 Miln/mm3 (4.00-5.20); White Blood Count 7.5 Thou/mm3 (3.6-11.0)
[2024-06-01 05:58] LABS: Glucose Estimated Average 209 mg/dL (80-131); Hemoglobin A1C 8.9 % Hgb (4.8-6.0)
[2024-06-01 06:15] LABS: Vitamin B12 1234 pg/mL (211-911)
[2024-06-01 06:23] LABS: Anion Gap 7 (7-16); BUN/Creatinine Ratio 25 Ratio (12-20); Blood Urea Nitrogen 20 mg/dL (9-23); Calcium 9.3 mg/dL (8.3-10.6); Carbon Dioxide 27.4 mMol/L (20.0-31.0); Chloride 106 mMol/L (98-107); Creatinine (Component) 0.8 mg/dL (0.6-1.3); Estimated Creatinine Clearance 62.4 mL/min (>60); Glucose 162 mg/dL (74-106); Osmolality,Calculated 286 (275-295); Phosphorous 3.6 mg/dL (2.4-5.1); Potassium 4.1 mMol/L (3.4-5.1); Sodium 140 mMol/L (136-145); Thyroid Stimulating Hormone 1.91 uIU/mL (0.55-4.78); eGFR > 60 See Note
[2024-06-01 06:55] LABS: Ferritin 8 ng/mL (7.3-270.7); Total Iron Binding Capacity 359 mcg/dL (250-425)
[2024-06-01 07:18] LABS: Iron 57 mcg/dL (50-170); Percent Iron Saturation 15 % (20-55); Unsaturated Iron Binding 302 (225-295)
[2024-06-01] MEDS: MORPHINE SULF INJ 10 MG/ML VIAL 2 MG IVP ×4 (07:46→19:52)
--- NOTE | 2024-06-01 08:15 | PC.PT ---
Patient has a L hip fracture. Will hold PT eval until after patient has her surgery.
[2024-06-01] MEDS: oxyCODONE/APAP 5/325 TABLET 1 TAB PO ×2 (09:49→22:20)
--- NOTE | 2024-06-01 13:13 | ESPR_ITS ---
<Statement entered by Ravinder Sierra MD - 06/01/24 18:44> Patient was seen and examined at bedside. Patient denied any new symptoms and denied any pain at this time. Plan for surgery will be done today, patient was cleared from cardiology standpoint for surgery, echo showed ejection fraction of 60 to 65% and the patient is n.p.o. for surgery. Hemoglobin stable at 10.1, will continue to monitor. Coagulation panel within normal limits, serum glucose today is 162, and her A1c found to be 8.9. Will resume the patient gabapentin and will adjust her pain medication for better toleration and less side effect. - Patient's plan and care discussed with my attending, Dr. Fidencio Sierra MD Internal Medicine PGY-2 Documentation for date of: 06/01/24 Subjective Subjective Interval history: Patient confirmed her DNR status and reaffirmed that she was to continue to be DNR. Patient denies some pain but it is tolerated with current pain regimen. Denies nausea, vomiting. Reports being hungry but otherwise no other complaints Exam Vital Signs Temp Pulse Resp BP Pulse Ox O2 Del Method 97.2 F 74 18 111/62 92 L Room Air 06/01/24 11:55 06/01/24 11:55 06/01/24 11:55 06/01/24 11:55 06/01/24 11:55 06/01/24 11:55 Narrative Exam General: Well appearing, well nourished, in no distress HEENT: Normocephalic, atraumatic, conjunctiva clear, sclera non-icteric, EOM intact Heart: Regular rate and rhythm, no murmur or gallop Lungs: Clear to auscultation, no wheezes Abdomen: soft, nontender, non distended Extremities: Sensation is grossly intact of L5 b/l LE, <2 sec cap refill b/l LE, tenderness of anterior L thigh, limited ROM due to pain of LLE Neurologic: Moves all extremities spontaneously, A&O x3 Psychiatric: Cooperative, normal mood and affect. Objective Labs 06/02/24 04:35 06/02/24 04:35 Labs: Laboratory Results - last 24 hr 05/31/24 05/31/24 06/01/24 14:10 20:26 04:53 WBC 8.3 7.5 RBC 3.94 L 3.53 L Hgb 11.0 L 10.1 L Hct 34.1 L 30.5 L MCV 87 86 MCH 27.9 28.6 MCHC 32.3 33.1 RDW Std Deviation 45.8 45.8 Plt Count 251 221 D Neut % (Auto) 74 66 Lymph % (Auto) 19 24 Early % (Auto) 5 9 Eos % (Auto) 1 1 Baso % (Auto) 0 0 Neut # (Auto) 6.2 4.9 Lymph # (Auto) 1.6 1.8 Early # (Auto) 0.4 0.6 Eos # (Auto) 0.1 0.1 Baso # (Auto) 0.0 0.0 Immature Gran # (Auto) 0.06 H 0.03 H Absolute Nucleated RBC 0.00 0.00 Immature Gran % 1 H 0 Nucleated RBC % 0 0 PT 10.3 INR 0.9 APTT 24.5 Sodium 140 140 Potassium 3.9 4.1 Chloride 107 106 Carbon Dioxide 24.3 27.4 Anion Gap 9 7 BUN 22 20 Creatinine 1.0 0.8 Estim Creat Clear Calc 49.7 L 62.4 eGFR > 60 > 60 BUN/Creatinine Ratio 22 H 25 H Glucose [address] Glu mg/dL 209 H Hemoglobin A1c 8.9 H Calculated Osmolality 287 286 Calcium 9.7 9.3 Corrected Calcium 9.7 Phosphorus 3.6 Magnesium 2.0 Iron 57 TIBC 359 Iron Saturation 15 L Unsat Iron Binding 302 H Ferritin 8 Total Bilirubin 0.3 AST 39 H ALT 54 H Alkaline Phosphatase 151 H Troponin I < 0.020 B-Natriuretic Peptide 183 H Total Protein 6.6 Albumin 4.2 Globulin 2.4 Albumin/Globulin Ratio 1.8 Vitamin B12 1234 H Folate 15.40 TSH 1.91 Blood Type A Positive Antibody Screen NEGATIVE Blood Bank Wristband ID Yes Quality Measures Quality Measures VTE prophylaxis Advance care planning discussed with:: patient Assessment & Plan Assessment Current Active Medications: Generic Name Dose Route Start Last Admin Trade Name Freq PRN Reason Stop Dose Admin Acetaminophen 650 mg 05/31/24 17:04 Acetaminophen 325 Mg Tablet PO 06/30/24 17:03 Q6H PRN Fever >100.3 Acetaminophen 650 mg 05/31/24 17:04 Acetaminophen 325 Mg Tablet PO 06/30/24 17:03 Q6H PRN PAIN SCALE 1-3 (mild Dextrose 25 ml 05/31/24 17:12 Dextrose 50%-Water Inj 50 Ml Syringe IV 06/30/24 17:11 Q15MIN PRN BG 50-70 responsive npo pt Dextrose 50 ml 05/31/24 17:12 Dextrose 50%-Water Inj 50 Ml Syringe IV 06/30/24 17:11 Q15MIN PRN BG <50 OR BG <70 & pt unresponsive Gabapentin 100 mg 06/01/24 21:00 Gabapentin 100 Mg Capsule PO 07/01/24 20:59 QPM [facility] Glucagon 1 mg 05/31/24 17:12 Glucagon Inj 1 Mg Vial IM Q15MIN PRN BG <70, and no IV access Insulin Glargine 8 unit 05/31/24 21:00 05/31/24 21:35 Insulin Glargine (Lantus) 5 Unit/0.05 Ml (Per 5 Units) SC 06/30/24 20:59 8 unit QPM [facility] Administration Insulin Human Lispro 0 unit 05/31/24 21:00 06/01/24 11:50 Insulin Lispro (Admelog) 1 Unit/0.01 Ml Unit SC 06/30/24 20:59 Not Given ACHS [facility] Protocol Melatonin 6 mg 05/31/24 21:00 05/31/24 21:33 Melatonin 3 Mg Tablet PO 06/30/24 20:59 6 mg HS [facility]ON Administration Morphine Sulfate 2 mg 05/31/24 17:04 06/01/24 11:56 Morphine Sulf Inj 10 Mg/Ml Vial IVP 06/05/24 17:03 2 mg Q4H PRN Administration PAIN SCALE 7-10 (Severe Ondansetron HCl 4 mg 05/31/24 17:04 Ondansetron Inj 2 Mg/Ml Inj 2 Ml IV 06/30/24 17:03 Q6H PRN NAUSEA OR VOMITING Protocol Oxycodone/Acetaminophen 1 tab 05/31/24 17:04 06/01/24 09:49 Oxycodone/Apap 5/325 Tablet PO 06/05/24 17:03 1 tab Q6H PRN Administration PAIN SCALE 4-6 (Moderate Tizanidine HCl 4 mg 05/31/24 17:20 Tizanidine Hcl 2 Mg Tablet PO 06/30/24 20:59 HS PRN MUSCLE SPASMS Kristina Sun is a 68 F w/ PMHX of HTN, DM, spinal stenosis who presents with L hip pain after a ground level fall. Xray showed intertrochanteric fracture L hip. Orthopedic surgery(Dr. Hemphill) was consulted who recommended surgery tomorrow pending cardiac clearance. #L Hip intertrochanteric fx #Ground level fall Mechanical fall this morning, no LOC, Head CT(-) CXR(-); no blood thinners Xray shows L intertrochanteric fx ; echo shows EF: 60 to 65% no significant valvular disease -Multimodal pain control -PT referral -Zofran PRN Nausea -Advance diet as tolerated after surgery #Chronic Normocytic Anemia Hgb 11 MCV 89 in ED Hinduism, refuses blood products B12/folate nl; Iron 57 TIBC 359 iron sat 15 ferritin 8 -CBC #Hx of HTN Home meds HCTZ 25mg po and lisinopril 20mg po Restart after surgery; BP soft this morning #Hx of DM II A1c 8.2 10/04; on metformin 500mg BID at home; A1C 8.9 -Diet carb cons low -SSI -Basal 8u glargine #Hx of spinal stenosis Follows with Neurosurgery outpatient management Restart Tizanidine and Gabapentin Health Maintenance: Disp: Med/tele FEN: NPO after MN GI: not indicated DVT: SCDs Lines: PIV Code: DNR The patient's plan was discussed with attending Dr. Nicolas and senior residents Dr. Sierra and Marti Allen, DO PGY1 Internal Medicine Attending Provider Attestation/Addendum I have examined the patient, reviewed labs and imaging findings, discussed the case with the resident(s), and reviewed entered orders. I agree with the plan of care as outlined in this note, with these additional summaries/recommendations: Patient seen at bedside. No acute overnight events. Echocardiogram completed which revealed EF 60 to 65% and stage I diastolic dysfunction. Patient is cleared by cardiology for surgery. Patient will go for surgical correction of acute intertrochanteric fracture of left hip with orthopedics. Continue pain management and n.p.o. in anticipation of surgery. Mild anemia present with hemoglobin 10.1 and MCV 86. Patient is Restorationism and refuses all blood products if needed. Continue basal & bolus insulin for diabetes mellitus type 2. A1c 8.9%. Continue home antihypertensives. Repeat hematology and chemistry panel in AM. Dr. Nicolas
--- NOTE | 2024-06-01 14:35 | PC.SS ---
Rounding note: pending cardio clearance for surgery.
--- NOTE | 2024-06-01 15:30 | XR_ITS ---
Examination: Left hip femur AP lateral 5 views Fluoroscopy Exam date and time: June 01, 2024 1941 hrs. Indications: Acute intertrochanteric fracture left hip May 31, 2024, patient fell, operative reduction internal fixation fracture today Technique And Findings: 5 spot fluoroscopic AP lateral hip femur films Fluoroscopy 64 seconds radiation dose 8.45 milligray Operative reduction internal fixation hip fracture with anatomic alignment Impression: Operative reduction internal fixation hip fracture with anatomic alignment
--- NOTE | 2024-06-01 16:55 | XR_ITS ---
Examination:Left hip AP, lateral, AP pelvis 3 views Technique: Hip AP lateral, AP pelvis, 3 views Exam date and time:June 01, 2024 1742 hrs. Indications: Postop reduction hip fracture today, left Findings: Operative reduction internal fixation left hip fracture with satisfactory alignment Orthopedic hardware satisfactory position Impression: Operative reduction internal fixation left hip fracture with satisfactory alignment.
--- NOTE | 2024-06-01 17:00 | SUR.PHASEI ---
1700: pt received from OR via bed. report received from Dr. Dinh and Ino, RN. pt alert and oriented. no s/s of resp. distress or discomfort. denies any pain or discomfort. dressing to left hip clean, dry and intact. no bleeding from dressing. circulation, movement and sensation to left leg intact. cap refill to left toes less than 2 seconds.
--- NOTE | 2024-06-01 17:00 | SUR.PHASEI ---
1700: rahman cath in place clean and intact.
--- NOTE | 2024-06-01 17:05 | PD.SUROPNT ---
Date of Procedure 06/01/24 Pre Op Diagnosis Displaced intertrochanter fracture left hip Post Op Diagnosis Same Procedure Open reduction internal fixation with trochanteric fixation nail. Synthes implant. Femur size 360 mm x 12 mm diameter. Gallbladder size 95 mm Findings Displaced intertrochanteric fracture left hip Procedure Description Patient was given general endotracheal anesthesia. Once satisfactory anesthesia achieved patient was put on fracture table and fracture was reduced. The fracture was checked under C arm in both AP and lateral position and found to be extremely good Following that part was thoroughly prepped and draped. Intravenous antibiotics was given at the time of anesthesia I skin incision was made 2 inches proximal to greater trochanter extending further proximally by 2 to 3 inches. Deeper dissection was carried out. Soft tissue was incised. Subcu tissue was incised. Tensor fascia gin was incised C arm guidance a guidepin was passed from the top of greater trochanter into the marrow canal. The guidepin position was checked under C arm and both AP and lateral and once it is satisfactory position then reaming up to the lesser trochanter was done 8 pin was removed and guidewire was passed. Once satisfactory position was achieved and checked under C arm the length of the nail was decided to be 360 mm long Starting with size 11.5 mm the reaming of the canal was done. The reaming was done up to 13.5 mm. Final decision was made to use size 360 mm long by 12 mm diameter nail. Following that the above-mentioned size nail was slowly advanced into the marrow canal after placing on the jig Once satisfactory placement achieved and checked under C arm then placement for the helical blade jig was decided. Jig was placed on the lateral aspect of the femur. Skin cut was made and tensor fascia gin was incised. The guidepin was passed up to the subchondral portion of the head of the femur. Once satisfactory position was achieved and checked under C arm in both AP and lateral then the length of the helical blade was measured. The decision was made to use size 95 mm long helical blade Following that lateral cortex was breached with the reamer. After that the reaming up to the subchondral portion of the head of the femur was done. Size 95 mm helical blade was mounted and slowly advanced into the marrow canal. Once satisfactory position was achieved then placement jig was removed. With the help of flexible screwdriver the top cleaner was tightened. Following that with the help of fixed a screwdriver the placement Zig for the nail was removed. Wound was irrigated with antibiotic solution every 4 to 5 minutes The closure was done with the help of 2-0 Vicryl in layers. The skin was closed with yumiko Patient tolerated procedure well. Estimated blood loss 150 mL. After cleaning the wound with hydrogen peroxide solution a sterile dressing was applied. Further management patient will be mobilized with the help of physical therapist and will be full weight-bear on both legs Anesthesia GETA Pathology / specimen None Estimated Blood Loss 150 Surgeon Josef Montoya MD Surgical Staff Operation Date: 06/01/24 16:45 Case Staff Anesthesiologist: Gael Dinh RNmetal storage worker: Zoe Addison
[2024-06-01] MEDS: fentaNYL CIT INJ 50 mCg/ML AMP 2ML IV (17:20)
--- NOTE | 2024-06-01 17:26 | ESPR_ITS ---
<Statement entered by Vladimir Peguero MD - 06/02/24 13:17> Patient undergoing surgery today successfully cardiac echo showed normal ejection fraction given cardiac clearance for surgery will continue to monitor the patient closely. Agree with the treatment plan recommendation reviewed all the findings essential components of the note I was present during the evaluation and management and we will continue to monitor the patient for any cardiac issues postoperatively agree with the treatment plan recommendation as documented by Dr. Macario PGY2 Documentation for date of: 06/01/24 Subjective Subjective Interval history: [id number]-old female patient (Jehovah witness, no transfusions) with significant medical history for TIA, hypertension, diabetes type 2, neuropathy hyperlipidemia and chronic back pain due to spinal stenosis was brought in to ED after ground-level fall. Patient stated that the loss was due to loss of balance, denied loss of consciousness or hitting her head on the floor. Patient denied dizziness, blurry vision, palpitations, chest pain/pressure, abdominal pain, chills, fevers or other associate symptoms. ED vitals were unremarkable, labs were significant for Hgb 11, MCV 87, HCT 34, glucose 197, AST 39, ALT 54, ALP 151, BNP 183. Chest x-ray and head CT were negative. Femur x-ray and hip pelvis x-ray indicated acute intertrochanteric fracture of left hip. Orthopedist Dr. Hemphill was consulted and cardiology team was consulted for clearance. Medical Hx: TIA, DM2, HLD, HTN, neuropathy, spinal stenosis Surgical Hx: cholecystectomy, hysterectomy, bone spur, gastric bypass Medications: Lisinopril 20 mg, gabapentin 100 mg, HCTZ 25 mg, atorvastatin 10 mg, metformin 500 mg, Ambien, tizanidine Social Hx: Denied smoking cigarette, drinking alcohol or using other illicit drugs. Patient is Jehovah witness and declines any blood transfusion if needed Allergies: NKDA CODE STATUS: DNR/DNI 05/31/24: Given patient's medical history for DM2, TIA, HLD, HTN and revised cardiac risk index for preoperative risk of 1 point, gives her 6% risk of major cardiac event. Echo cardiogram will be ordered and we will follow-up with EKG. 06/01/24: No significant overnight events, patient seen at bedside. Echocardiogram indicative of: Normal LV size and function. Mild LVH. Stage I diastolic dysfunction. Estimated EF 60-65%, Normal RV sizea and function. Mild MAC.Trace mitral and trace tricuspid regurgitation. Mild AV sclerosis without stenosis. Patient is cleared for his surgical procedure. Exam Vital Signs Temp Pulse Resp BP Pulse Ox O2 Del Method 97.2 F 72 18 111/62 92 L Room Air 06/01/24 11:55 06/01/24 15:33 06/01/24 15:33 06/01/24 11:55 06/01/24 11:55 06/01/24 11:55 Narrative Exam Constitutional: well-developed, well-nourished, in mild distress, lying in bed HEENT: NCAT, EOMI, reactive round pupils b/l, patent nares b/l, moist mucous membranes Lung: CTAB, no wheezing, no rhonchi Heart: Regular S1S2, no murmurs, gallops, or rubs Abdomen: Soft, non-distended, non-tender, bowel sounds present throughout Extremities: Left hip is tender on palpation, left leg is externally rotated, shortened with limited range of motion, no edema, LE pulses present b/l, Neurologic: No focal sensory or motor deficits noted, AOx3, appropriate affect Skin: Warm, dry, no lesions or rashes noted Objective Labs 06/01/24 04:53 06/01/24 04:53 Labs: Laboratory Results - last 24 hr 05/31/24 06/01/24 20:26 04:53 WBC 7.5 RBC 3.53 L Hgb 10.1 L Hct 30.5 L MCV 86 MCH 28.6 MCHC 33.1 RDW Std Deviation 45.8 Plt Count 221 D Neut % (Auto) 66 Lymph % (Auto) 24 [place] % (Auto) 9 Eos % (Auto) 1 Baso % (Auto) 0 Neut # (Auto) 4.9 Lymph # (Auto) 1.8 [place] # (Auto) 0.6 Eos # (Auto) 0.1 Baso # (Auto) 0.0 Immature Gran # (Auto) 0.03 H Absolute Nucleated RBC 0.00 Immature Gran % 0 Nucleated RBC % 0 Sodium 140 Potassium 4.1 Chloride 106 Carbon Dioxide 27.4 Anion Gap 7 BUN 20 Creatinine 0.8 Estim Creat Clear Calc 62.4 eGFR > 60 BUN/Creatinine Ratio 25 H Glucose [address] Glu mg/dL 209 H Hemoglobin A1c 8.9 H Calculated Osmolality 286 Calcium 9.3 Phosphorus 3.6 Magnesium 2.0 Iron 57 TIBC 359 Iron Saturation 15 L Unsat Iron Binding 302 H Ferritin 8 Vitamin B12 1234 H Folate 15.40 TSH 1.91 Blood Type A Positive Antibody Screen NEGATIVE Blood Bank Wristband ID Yes Quality Measures Quality Measures VTE prophylaxis Advance care planning discussed with:: other Assessment & Plan Assessment Current Active Medications: Generic Name Dose Route Start Last Admin Trade Name Freq PRN Reason Stop Dose Admin Acetaminophen 650 mg 05/31/24 17:04 Acetaminophen 325 Mg Tablet PO 06/30/24 17:03 Q6H PRN Fever >100.3 Acetaminophen 650 mg 05/31/24 17:04 Acetaminophen 325 Mg Tablet PO 06/30/24 17:03 Q6H PRN PAIN SCALE 1-3 (mild Dextrose 25 ml 05/31/24 17:12 Dextrose 50%-Water Inj 50 Ml Syringe IV 06/30/24 17:11 Q15MIN PRN BG 50-70 responsive npo pt Dextrose 50 ml 05/31/24 17:12 Dextrose 50%-Water Inj 50 Ml Syringe IV 06/30/24 17:11 Q15MIN PRN BG <50 OR BG <70 & pt unresponsive Fentanyl Citrate 50 mcg 06/01/24 16:42 06/01/24 17:20 Fentanyl Cit Inj 50 Mcg/Ml Amp 2ml IV 06/01/24 18:43 50 mcg Q5M PRN Administration PAIN SCALE 4-10(Mod-Sev Gabapentin 100 mg 06/01/24 21:00 Gabapentin 100 Mg Capsule PO 07/01/24 20:59 QPM WON Glucagon 1 mg 05/31/24 17:12 Glucagon Inj 1 Mg Vial IM Q15MIN PRN BG <70, and no IV access Hydralazine HCl 5 mg 06/01/24 16:42 Hydralazine Inj 20 Mg/Ml Vial IV 06/01/24 18:43 Q20M PRN SEE COMMENTS Insulin Glargine 8 unit 05/31/24 21:00 05/31/24 21:35 Insulin Glargine (Lantus) 5 Unit/0.05 Ml (Per 5 Units) SC 06/30/24 20:59 8 unit QPM WON Administration Insulin Human Lispro 0 unit 05/31/24 21:00 06/01/24 11:50 Insulin Lispro (Admelog) 1 Unit/0.01 Ml Unit SC 06/30/24 20:59 Not Given ACHS WON Protocol Melatonin 6 mg 05/31/24 21:00 05/31/24 21:33 Melatonin 3 Mg Tablet PO 06/30/24 20:59 6 mg HS WON Administration Meperidine HCl 12.5 mg 06/01/24 16:42 Meperidine Inj 50 Mg/Ml Vial IV 06/06/24 16:41 Q5M PRN SHIVERING Metoclopramide HCl 10 mg 06/01/24 16:43 Metoclopramide Inj 5 Mg/Ml Vial 2 Ml IVP 06/01/24 18:43 X1 PRN NAUSEA OR VOMITING Protocol Metoprolol Tartrate 1 mg 06/01/24 16:42 Metoprolol Tartrate Inj 1 Mg/Ml Amp 5 Ml IVP 06/02/24 16:41 Q5M PRN TACHYCARDIA Midazolam HCl 1 mg 06/01/24 16:42 Midazolam Inj 1 Mg/Ml Vial 2 Ml IV 06/02/24 16:41 Q5M PRN ANXIETY Morphine Sulfate 2 mg 05/31/24 17:04 06/01/24 11:56 Morphine Sulf Inj 10 Mg/Ml Vial IVP 06/05/24 17:03 2 mg Q4H PRN Administration PAIN SCALE 7-10 (Severe Morphine Sulfate 2 mg 06/01/24 16:42 Morphine Sulf Inj 10 Mg/Ml Vial IVP 06/01/24 18:43 Q10M PRN PAIN SCALE 4-10(Mod-Sev Ondansetron HCl 4 mg 05/31/24 17:04 Ondansetron Inj 2 Mg/Ml Inj 2 Ml IV 06/30/24 17:03 Q6H PRN NAUSEA OR VOMITING Protocol Oxycodone/Acetaminophen 1 tab 05/31/24 17:04 06/01/24 09:49 Oxycodone/Apap 5/325 Tablet PO 06/05/24 17:03 1 tab Q6H PRN Administration PAIN SCALE 4-6 (Moderate Tizanidine HCl 4 mg 05/31/24 17:20 Tizanidine Hcl 2 Mg Tablet PO 06/30/24 20:59 HS PRN MUSCLE SPASMS Plan [id number]-old female patient (Jehovah witness, no transfusions) with significant medical history for TIA, hypertension, diabetes type 2, neuropathy hyperlipidemia and chronic back pain due to spinal stenosis was brought in to ED after ground-level fall. Orthopedist Dr. Hemphill consulted. #Cardiac clearance for #Ground-level fall #Acute intertrochanteric fracture of left hip Patient with history of spinal stenosis, on Ambien and cyclobenzaprine On admission patient stated she lost balance and fell forward landing on her left side X-ray of femur and hip indicative of left intertrochanteric fracture Orthopedist Dr. Hemphill onboard Echocardiogram indicative of: Normal LV size and function. Mild LVH. Stage I diastolic dysfunction. Estimated EF 60-65%, Normal RV sizea and function. Mild MAC.Trace mitral and trace tricuspid regurgitation. Mild AV sclerosis without stenosis. Plan: ? Morphine and [place] for pain management ? Patient to undergo ORIF by Dr. Hemphill today 06/01/24 ? Revised cardiac risk index or preoperative for preoperative risk score of 1 ? Echocardiogram ordered for cardiac clearance #Hypertension #Hyperlipidemia #Diabetes mellitus type 2 #History of TIA -Management per primary team This patient care was discussed with my attending Dr. Sudhir Wayne MD PGY-2 Disclaimer: Minor errors in microsoft bi developer may be present since this note was dictated by speech recognition software.
--- NOTE | 2024-06-01 17:30 | SUR.PHASEI ---
1730: x-ray completed at this time.
--- NOTE | 2024-06-01 17:55 | SUR.PHASEI ---
Report given to CATHY Shahid.
--- NOTE | 2024-06-01 17:56 | SUR.PHASEI ---
1756: pt alert and oriented. no s/s of resp. distress or discomfort. she stated she is in minimal pain but tolerable. dressing to left hip clean, dry and intact. no bleeding from dressing. circulation, movement and sensation to left leg was intact. cap refill to left toes less than 2 seconds. able to move toes without any difficulty. rahman cath in place and intact.
--- NOTE | 2024-06-01 17:56 | SUR.PHASEI ---
drank water without any difficulties.
--- NOTE | 2024-06-01 18:42 | ESCONSULT_ITS ---
RE: KING SU : 1955 DATE OF CONSULTATION: 05/31/2024 Thank you, Dr. Tavares, for asking me to consult another patient whom I saw in the emergency room on 05/31/2024. The patient's family members were present when I talked to her. As per the patient, she was at home and she fell down. Subsequent to that the patient was unable to walk on the left lower limb and the patient was brought to the emergency room. X-ray was obtained, which revealed displaced intertrochanteric fracture of the left hip. It is to be noted that the patient is [place] and since surgery is contemplated after seeing the x-ray, the patient refused any blood transfusion even if it is life-threatening. I told the patient that we are going to respect her feelings. PAST MEDICAL HISTORY: The patient has a history of diabetes mellitus, high blood pressure, and spinal stenosis. PAST SURGICAL HISTORY: Unknown. DRUG HISTORY: The patient is on hydrochlorothiazide, lisinopril, metformin, zolpidem. ALLERGIES: NIL KNOWN. FAMILY HISTORY AND SOCIAL HISTORY: Noncontributory in this case. PHYSICAL EXAMINATION: GENERAL: The patient is fully alert and oriented. The patient's family members were present when I examined her and it was okay with the patient. NECK: Soft, supple, no mass felt. Trachea is centrally placed. VITAL SIGNS: Pulse 91 per minute. Blood pressure 130/76. RESPIRATORY SYSTEM: Bilateral vascular breath sounds. CHEST: Clear. ABDOMEN: Soft. No mass felt. Bowel sounds present. HEART EXAMINATION: First and second heart sound normal. No murmur heard. EXTREMITIES: Left lower limb examination revealed tenderness in the left groin area. Left lower limb is externally rotated. DIAGNOSTIC DATA: X-ray revealed displaced fracture of the intertrochanteric region. The patient and the family were explained the diagnosis and surgical procedure to be performed. Explained that nail and screw will be put on. With that type of pictures and diagram, it was explained in detail. All questions were answered. Risks with anesthesia includes, but not limited to reaction to anesthetic agents, cardiac arrest or rarely it might be fatal. Risks with the operation includes infection, and if that happens, the patient may need further surgical procedure. Other risks include delayed healing, wound descendants, etc. Sometimes there is a rare complication and that includes nonunion, etc. If that happens, then the patient may need further surgical procedure. Sometimes the screws may come out and then again the patient may need further surgical procedure. Since the patient is refusing blood, therefore, I also explained that if she bleeds significantly, then in that case, that scenario may be a life threatening and the patient is fully aware of that. Surgery is booked for June 01, 2024. Cardiology clearance is obtained. DT: 17:05:18 TT: 18:40:00 Ref: [id number] - TID: [id number]
[2024-06-01] MEDS: ceFAZolin/D5W 1 GM IVPB 1 GM/50 ML BAG IV (19:41)
[2024-06-01] MEDS: GABAPENTIN 100 MG CAPSULE PO (21:07)
[2024-06-01] MEDS: MELATONIN 3 MG TABLET 6 MG PO (21:07)
[2024-06-01] MEDS: INSULIN LISPRO (AdmeLOG) 1 UNIT/0.01 ML UNIT SC (21:09)
[2024-06-01] MEDS: INSULIN GLARGINE (Lantus) 5 UNIT/0.05 ML (PER 5 UNITS) 8 UNIT SC (21:09)
[2024-06-01] MEDS: tiZANidine HCL 2 MG TABLET 4 MG PO (22:20)
[2024-06-02] VITALS (10 sets, daily range): BP systolic 103–126; BP diastolic 49–65; PULSE 64–82; RESP 16–99; TEMP 36.2–36.7; O2SAT 92–98; BMI 12.0
[2024-06-02] MEDS: MORPHINE SULF INJ 10 MG/ML VIAL 2 MG IVP ×2 (01:57→08:54)
[2024-06-02] MEDS: ceFAZolin/D5W 1 GM IVPB 1 GM/50 ML BAG IV (03:10)
[2024-06-02 05:30] LABS: Basophils % (Auto) 0 % (0-2.5); Eosinophils % (Auto) 0 % (0-10); Hematocrit 27.4 % (36.0-46.0); Hemoglobin 8.9 g/dL (12.0-16.0); Immature Granulocytes % (Auto) 0 % (0-0); Immature Granulocytes Auto 0.04 Thou/mm3 (0.00-0.00); Lymphocytes # (Auto) 0.5 Thou/mm3 (1.0-4.8); Lymphocytes % (Auto) 6 % (10-50); Mean Corpuscular HGB Conc 32.5 g/dl (31.0-37.0); Mean Corpuscular Hemoglobin 28.7 pg (25.0-35.0); Mean Corpuscular Volume 88 fL (80-100); Monocytes # (Auto) 0.4 Thou/mm3 (0.0-0.8); Monocytes % (Auto) 4 % (0-12); Neutrophils # (Auto) 8.8 Thou/mm3 (1.8-7.7); Neutrophils % (Auto) 90 % (37-80); Nucleated Red Blood Cell % 0 /100 WBC (0); Platelet Count 186 Thou/mm3 (140-440); RDW Standard Deviation 46.4 fL (36.4-46.3); White Blood Count 9.8 Thou/mm3 (3.6-11.0)
[2024-06-02 05:50] LABS: Anion Gap 8 (7-16); BUN/Creatinine Ratio 22 Ratio (12-20); Blood Urea Nitrogen 24 mg/dL (9-23); Calcium 8.8 mg/dL (8.3-10.6); Carbon Dioxide 25.4 mMol/L (20.0-31.0); Chloride 102 mMol/L (98-107); Creatinine (Component) 1.1 mg/dL (0.6-1.3); Estimated Creatinine Clearance 45.4 mL/min (>60); Glucose 330 mg/dL (74-106); Osmolality,Calculated 287 (275-295); Potassium 4.3 mMol/L (3.4-5.1); Sodium 135 mMol/L (136-145); eGFR 54 See Note
[2024-06-02] MEDS: SENNA TABLET 1 TAB PO (08:06)
[2024-06-02] MEDS: oxyCODONE/APAP 5/325 TABLET 1 TAB PO ×2 (08:06→16:51)
[2024-06-02] MEDS: INSULIN LISPRO (AdmeLOG) 1 UNIT/0.01 ML UNIT SC ×4 (08:07→21:28)
--- NOTE | 2024-06-02 09:56 | PC.SS ---
SS follow up note; SS was informed by ANMOL boudreaux that patient will be needing SNF. SS submitted SNF inquiry through [employer].
--- NOTE | 2024-06-02 14:38 | PC.SS ---
SS follow up note; SS met with patient at bedside to offer SNF choices. Patient's first choice was [facility]. SS contacted Nereida from [facility] and she accepted patient, however Auth needs to be submitted on Tuesday to [facility].
--- NOTE | 2024-06-02 15:38 | ESPR_ITS ---
Documentation for date of: 06/02/24 Subjective Subjective Interval history: No acute events overnight. Patient reports difficulty sleeping last night. She states that she usually needs Ambien to sleep. Patient reports that physical therapy was difficult but she was able to stand. Denies nausea or vomiting. Is tolerating diet well. Exam Vital Signs Temp Pulse Resp BP Pulse Ox O2 Del Method O2 Flow Rate 98.0 F 68 19 111/65 92 L Room Air 4 06/02/24 12:00 06/02/24 14:51 06/02/24 14:51 06/02/24 12:00 06/02/24 12:00 06/02/24 12:00 06/01/24 17:55 Narrative Exam General: Well appearing, well nourished, in no distress HEENT: Normocephalic, atraumatic, conjunctiva clear, sclera non-icteric, EOM intact Heart: Regular rate and rhythm, no murmur or gallop Lungs: Clear to auscultation, no wheezes Abdomen: soft, nontender, non distended Extremities: Sensation is grossly intact of L5 b/l LE, <2 sec cap refill b/l LE, tenderness of anterior L thigh, limited ROM due to pain of LLE Neurologic: Moves all extremities spontaneously, A&O x3 Psychiatric: Cooperative, normal mood and affect. Objective Labs 06/03/24 05:12 06/03/24 05:12 Labs: Laboratory Results - last 24 hr 06/02/24 04:35 WBC 9.8 RBC 3.10 L Hgb 8.9 L Hct 27.4 L MCV 88 MCH 28.7 MCHC 32.5 RDW Std Deviation 46.4 H Plt Count 186 D Neut % (Auto) 90 H Lymph % (Auto) 6 L [place] % (Auto) 4 Eos % (Auto) 0 Baso % (Auto) 0 Neut # (Auto) 8.8 H Lymph # (Auto) 0.5 L [place] # (Auto) 0.4 Eos # (Auto) 0.0 Baso # (Auto) 0.0 Immature Gran # (Auto) 0.04 H Absolute Nucleated RBC 0.00 Immature Gran % 0 Nucleated RBC % 0 Sodium 135 L Potassium 4.3 Chloride 102 Carbon Dioxide 25.4 Anion Gap 8 BUN 24 H Creatinine 1.1 Estim Creat Clear Calc 45.4 L eGFR 54 L BUN/Creatinine Ratio 22 H Glucose 330 H D Calculated Osmolality 287 Calcium 8.8 Quality Measures Quality Measures VTE prophylaxis Advance care planning discussed with:: patient Assessment & Plan Assessment Current Active Medications: Generic Name Dose Route Start Last Admin Trade Name [place] PRN Reason Stop Dose Admin Acetaminophen 650 mg 05/31/24 17:04 Acetaminophen 325 Mg Tablet PO 06/30/24 17:03 Q6H PRN Fever >100.3 Acetaminophen 650 mg 05/31/24 17:04 Acetaminophen 325 Mg Tablet PO 06/30/24 17:03 Q6H PRN PAIN SCALE 1-3 (mild Dextrose 25 ml 05/31/24 17:12 Dextrose 50%-Water Inj 50 Ml Syringe IV 06/30/24 17:11 Q15MIN PRN BG 50-70 responsive npo pt Dextrose 50 ml 05/31/24 17:12 Dextrose 50%-Water Inj 50 Ml Syringe IV 06/30/24 17:11 Q15MIN PRN BG <50 OR BG <70 & pt unresponsive Gabapentin 100 mg 06/01/24 21:00 06/01/24 21:07 Gabapentin 100 Mg Capsule PO 07/01/24 20:59 100 mg QPM WON Administration Glucagon 1 mg 05/31/24 17:12 Glucagon Inj 1 Mg Vial IM Q15MIN PRN BG <70, and no IV access Insulin Glargine 8 unit 05/31/24 21:00 06/01/24 21:09 Insulin Glargine (Lantus) 5 Unit/0.05 Ml (Per 5 Units) SC 06/30/24 20:59 8 unit QPM WON Administration Insulin Human Lispro 0 unit 05/31/24 21:00 06/02/24 12:05 Insulin Lispro (Admelog) 1 Unit/0.01 Ml Unit SC 06/30/24 20:59 3 unit ACHS WON Administration Protocol Melatonin 6 mg 05/31/24 21:00 06/01/24 21:07 Melatonin 3 Mg Tablet PO 06/30/24 20:59 6 mg HS WON Administration Meperidine HCl 12.5 mg 06/01/24 16:42 Meperidine Inj 50 Mg/Ml Vial IV 06/06/24 16:41 Q5M PRN SHIVERING Metoprolol Tartrate 1 mg 06/01/24 16:42 Metoprolol Tartrate Inj 1 Mg/Ml Amp 5 Ml IVP 06/02/24 16:41 Q5M PRN TACHYCARDIA Midazolam HCl 1 mg 06/01/24 16:42 Midazolam Inj 1 Mg/Ml Vial 2 Ml IV 06/02/24 16:41 Q5M PRN ANXIETY Morphine Sulfate 2 mg 05/31/24 17:04 06/02/24 08:54 Morphine Sulf Inj 10 Mg/Ml Vial IVP 06/05/24 17:03 2 mg Q4H PRN Administration PAIN SCALE 7-10 (Severe Ondansetron HCl 4 mg 05/31/24 17:04 Ondansetron Inj 2 Mg/Ml Inj 2 Ml IV 06/30/24 17:03 Q6H PRN NAUSEA OR VOMITING Protocol Oxycodone/Acetaminophen 1 tab 05/31/24 17:04 06/02/24 08:06 Oxycodone/Apap 5/325 Tablet PO 06/05/24 17:03 1 tab Q6H PRN Administration PAIN SCALE 4-6 (Moderate Sennosides 1 tab 06/02/24 09:00 06/02/24 08:06 Senna Tablet PO 07/02/24 08:59 1 tab QDAY WON Administration Protocol Tizanidine HCl 4 mg 05/31/24 17:20 06/01/24 22:20 Tizanidine Hcl 2 Mg Tablet PO 06/30/24 20:59 4 mg HS PRN Administration MUSCLE SPASMS Kristina Sun is a 68 F w/ PMHX of HTN, DM, spinal stenosis who presents with L hip pain after a ground level fall. Xray showed intertrochanteric fracture L hip. Orthopedic surgery(Dr. Hemphill) was consulted and performed left hip ORIF on 06/02/2024. #L Hip intertrochanteric fx #Ground level fall Mechanical fall this morning, no LOC, Head CT(-) CXR(-); no blood thinners Xray shows L intertrochanteric fx ; echo shows EF: 60 to 65% no significant valvular disease -Multimodal pain control -PT referral -Zofran PRN Nausea -Pending SNF placement -Aspirin 81mg BID for DVT prophylaxis #Chronic Normocytic Anemia Hgb 11 MCV 89 in ED Judaism, refuses blood products B12/folate nl; Iron 57 TIBC 359 iron sat 15 ferritin 8 -CBC #Hx of HTN Home meds HCTZ 25mg po and lisinopril 20mg po Restart after surgery; BP soft this morning #Hx of DM II A1c 8.2 10/04; on metformin 500mg BID at home; A1C 8.9 -Diet carb cons low -SSI -Basal 12u glargine #Hx of spinal stenosis Follows with Neurosurgery outpatient management Restart Tizanidine and Gabapentin Health Maintenance: Disp: Med/tele FEN: Carb cons low GI: not indicated DVT: SCDs Lines: PIV Code: DNR The patient's plan was discussed with attending Dr. Nicolas and senior residents Dr. Sierra and Marti Allen DO PGY1 Internal Medicine Senior resident attestation: Patient evaluated and examined at the bedside, plan of care discussed with rest of the team including my attending physician, except as noted. -The patient s/p hip repair for a left hip fracture, postop day 1, physical therapy ordered, but patient was unable to work with PT due to severe pain unable to stand, continued on IV analgesia. ?Dr. Montoya recommended aspirin 81 mg twice daily for DVT prophylaxis following surgical hip repair. ?Monitor for bleeding, patient is a Roman Catholic, refuses blood transfusion. Marti PGY2 Attending Provider Attestation/Addendum I have examined the patient, reviewed labs and imaging findings, discussed the case with the resident(s), and reviewed entered orders. I agree with the plan of care as outlined in this note, with these additional summaries/recommendations: Patient seen at bedside. Patient is postoperative day #1 status post ORIF with trochanteric fixation nail and synthesis implant for displaced intertrochanter fracture of left hip. Patient tolerated the procedure well. She reports she was able to stand with PT today although unable to ambulate. Continue pain management with oral [place] and IV morphine for breakthrough pain. Hemoglobin did downtrend from 10.1-8.9 and we will continue to monitor. Patient is a Roman Catholic and denies all blood products. Continue basal and bolus insulin for history of diabetes mellitus type 2. Continue home antihypertensives. We will monitor closely for bowel movement. Repeat hematology and chemistry panel in AM. Dr. Nicolas
--- NOTE | 2024-06-02 16:02 | ESPR_ITS ---
RE: KING SU : 1955 DATE OF SERVICE: 06/02/2024 SUBJECTIVE: King Su admitted to the hospital with fracture of the hip, underwent surgery successfully. The patient underwent open reduction and internal fixation and trochanter fixation with nail successfully yesterday with no complications. The patient has been doing clinically well. No shortness of breath or chest pain. No cardiac issues. OBJECTIVE: Vital Signs: Vital signs remained stable. Blood pressure 109/60, pulse is 65, respirations 16, temperature normal. Neck: Supple. No JVD. Lungs: Decreased breath sounds. No rales or rhonchi. Heart: Sounds regular. No gallops. Abdomen: Thin and soft. Extremities: No edema. LABORATORY DATA: Laboratory today showed hemoglobin slightly dropped 8.9, hematocrit 27. Chemistry panel shows creatinine of 1.1, BUN 24. IMPRESSION: 1. Fracture of the hip, underwent surgery successfully. 2. Anemia, possibly due to hemodilutional, some blood loss. RECOMMENDATIONS: Continue monitor hemoglobin closely. Cardiac-campos, the patient remains quite stable. DT: 13:12:27 TT: 14:08:00 Ref: [id number] - TID: [id number]
[2024-06-02] MEDS: ASPIRIN EC 81 MG TABEC PO (16:30)
--- NOTE | 2024-06-02 18:13 | PD.ANESPROG ---
Documentation for date of: 06/02/24 POST ANESTHESIA NOTE: Patient had GETA and L fascia iliaca nerve block for L TFN yesterday. I just saw her briefly in 374 and she was alert and calm, seated up in bed with food tray in front, NAD, denied any problems from anesthesia except one episode of vomiting afterwards. Gael Dinh MD Anesthesia Progress Note Progress Note Most recent Vital Signs: Last Vital Signs Temp 98.0 F 06/02/24 16:00 Pulse 76 06/02/24 16:00 Resp 16 06/02/24 16:00 BP 126/61 06/02/24 16:00 Pulse Ox 97 06/02/24 16:00 O2 Del Method Room Air 06/02/24 16:00 O2 Flow Rate 4 06/01/24 17:55
[2024-06-02] MEDS: MORPHINE SULF INJ 10 MG/ML VIAL 4 MG IVP (20:26)
[2024-06-02] MEDS: INSULIN GLARGINE (Lantus) 5 UNIT/0.05 ML (PER 5 UNITS) 12 UNIT SC (21:28)
[2024-06-02] MEDS: ZOLPIDEM 5 MG TABLET 10 MG PO (21:29)
[2024-06-02] MEDS: MELATONIN 3 MG TABLET 6 MG PO (21:30)
[2024-06-02] MEDS: GABAPENTIN 100 MG CAPSULE PO (21:30)
[2024-06-03] VITALS (7 sets, daily range): BP systolic 113–129; BP diastolic 59–75; PULSE 71–90; RESP 16–20; TEMP 36.1–36.5; O2SAT 94–100; BMI 12.0
[2024-06-03 06:26] LABS: Anion Gap 7 (7-16); BUN/Creatinine Ratio 28 Ratio (12-20); Blood Urea Nitrogen 22 mg/dL (9-23); Carbon Dioxide 27.6 mMol/L (20.0-31.0); Chloride 104 mMol/L (98-107); Creatinine (Component) 0.8 mg/dL (0.6-1.3); Estimated Creatinine Clearance 62.4 mL/min (>60); Glucose 107 mg/dL (74-106); Osmolality,Calculated 280 (275-295); Potassium 3.8 mMol/L (3.4-5.1); Sodium 139 mMol/L (136-145); eGFR > 60 See Note
[2024-06-03 06:27] LABS: Basophils % (Auto) 0 % (0-2.5); Eosinophils # (Auto) 0.1 Thou/mm3 (0.0-0.5); Eosinophils % (Auto) 1 % (0-10); Hematocrit 26.1 % (36.0-46.0); Immature Granulocytes % (Auto) 0 % (0-0); Immature Granulocytes Auto 0.04 Thou/mm3 (0.00-0.00); Lymphocytes # (Auto) 2.6 Thou/mm3 (1.0-4.8); Lymphocytes % (Auto) 25 % (10-50); Mean Corpuscular HGB Conc 32.6 g/dl (31.0-37.0); Mean Corpuscular Hemoglobin 28.5 pg (25.0-35.0); Mean Corpuscular Volume 88 fL (80-100); Monocytes # (Auto) 0.8 Thou/mm3 (0.0-0.8); Monocytes % (Auto) 8 % (0-12); Neutrophils # (Auto) 6.7 Thou/mm3 (1.8-7.7); Neutrophils % (Auto) 65 % (37-80); Nucleated Red Blood Cell % 0 /100 WBC (0); Platelet Count 191 Thou/mm3 (140-440); RDW Standard Deviation 46.3 fL (36.4-46.3); Red Blood Count 2.98 Miln/mm3 (4.00-5.20); White Blood Count 10.2 Thou/mm3 (3.6-11.0)
[2024-06-03 06:49] LABS: Hemoglobin 8.5 g/dL (12.0-16.0)
[2024-06-03] MEDS: ASPIRIN EC 81 MG TABEC PO ×2 (08:43→20:25)
[2024-06-03] MEDS: SENNA TABLET 1 TAB PO (08:43)
[2024-06-03] MEDS: POTASSIUM CHLORIDE 20 mEq TABCR 40 MEQ PO (08:43)
[2024-06-03] MEDS: MORPHINE SULF INJ 10 MG/ML VIAL 4 MG IVP ×3 (08:44→18:55)
--- NOTE | 2024-06-03 09:08 | PC.SS ---
SS spoke to Paula with [facility] who requested pt facesheet to be faxed to [phone], SS faxed utilizing [employer]
[2024-06-03] MEDS: oxyCODONE/APAP 5/325 TABLET 1 TAB PO ×3 (11:03→22:39)
--- NOTE | 2024-06-03 12:42 | PD.RESPRO ---
Documentation for date of: 06/03/24 Subjective Subjective Interval history: Patient seen today at the bedside fine awake, alert, oriented x 3. No overnight events reported. States no active complaints at this time, has passed some flatus but no bowel movement at this time. Vital signs stable. Labs show some low hemoglobin, repeat H&H was done we will follow-up in the afternoon. Plan is to transition patient from IV morphine to p.o. pain regimen, however patient request 1 more day of IV pain medication and will transition tomorrow in the a.m. to p.o. regimen. Anticipate discharge in the next 24 to 48 hours. Exam Vital Signs Temp Pulse Resp BP Pulse Ox O2 Del Method O2 Flow Rate 97.2 F 82 20 124/68 95 Room Air 4 06/03/24 12:00 06/03/24 12:00 06/03/24 12:00 06/03/24 12:00 06/03/24 12:00 06/03/24 12:00 06/01/24 17:55 Narrative Exam Physical Exam GENERAL: NAD, AAOx3 HEENT: Moist mucosa. Eyes open, symmetrical, & clear CARDIO: Heart RRR, no obvious murmurs PULM: No noted coughing/dyspnea CTA B/L, no R/W/R GI: Abdomen soft, nondistended, no pain on palpation. BSx4 SKIN/MSK/EXT: No wounds/rashes/edema/amputations, no pain on palpation. some pain in LLE, Pedal pulses present B/L NEURO: AAOx3, no focal neuro deficits, able to move all 4 extremities Objective Labs 06/03/24 13:50 06/03/24 05:12 Labs: Laboratory Results - last 24 hr 06/03/24 05:12 WBC 10.2 RBC 2.98 L Hgb 8.5 L Hct 26.1 L MCV 88 MCH 28.5 MCHC 32.6 RDW Std Deviation 46.3 Plt Count 191 Neut % (Auto) 65 Lymph % (Auto) 25 [place] % (Auto) 8 Eos % (Auto) 1 Baso % (Auto) 0 Neut # (Auto) 6.7 Lymph # (Auto) 2.6 [place] # (Auto) 0.8 Eos # (Auto) 0.1 Baso # (Auto) 0.0 Immature Gran # (Auto) 0.04 H Absolute Nucleated RBC 0.00 Immature Gran % 0 Nucleated RBC % 0 Sodium 139 Potassium 3.8 D Chloride 104 Carbon Dioxide 27.6 Anion Gap 7 BUN 22 Creatinine 0.8 Estim Creat Clear Calc 62.4 eGFR > 60 BUN/Creatinine Ratio 28 H Glucose 107 H D Calculated Osmolality 280 Calcium 9.0 Quality Measures Quality Measures VTE prophylaxis Advance care planning discussed with:: patient Assessment & Plan Assessment Current Active Medications: Generic Name Dose Route Start Last Admin Trade Name Freq PRN Reason Stop Dose Admin Acetaminophen 650 mg 05/31/24 17:04 Acetaminophen 325 Mg Tablet PO 06/30/24 17:03 Q6H PRN Fever >100.3 Acetaminophen 650 mg 05/31/24 17:04 Acetaminophen 325 Mg Tablet PO 06/30/24 17:03 Q6H PRN PAIN SCALE 1-3 (mild Aspirin 81 mg 06/03/24 09:00 06/03/24 08:43 Aspirin Ec 81 Mg Tabec PO 07/03/24 08:59 81 mg BID WON Administration Dextrose 25 ml 05/31/24 17:12 Dextrose 50%-Water Inj 50 Ml Syringe IV 06/30/24 17:11 Q15MIN PRN BG 50-70 responsive npo pt Dextrose 50 ml 05/31/24 17:12 Dextrose 50%-Water Inj 50 Ml Syringe IV 06/30/24 17:11 Q15MIN PRN BG <50 OR BG <70 & pt unresponsive Gabapentin 100 mg 06/01/24 21:00 06/02/24 21:30 Gabapentin 100 Mg Capsule PO 07/01/24 20:59 100 mg QPM WON Administration Glucagon 1 mg 05/31/24 17:12 Glucagon Inj 1 Mg Vial IM Q15MIN PRN BG <70, and no IV access Insulin Glargine 12 unit 06/02/24 21:00 06/02/24 21:28 Insulin Glargine (Lantus) 5 Unit/0.05 Ml (Per 5 Units) SC 07/02/24 20:59 12 unit QPM WON Administration Insulin Human Lispro 0 unit 05/31/24 21:00 06/03/24 11:45 Insulin Lispro (Admelog) 1 Unit/0.01 Ml Unit SC 06/30/24 20:59 Not Given ACHS WON Protocol Melatonin 6 mg 05/31/24 21:00 06/02/24 21:30 Melatonin 3 Mg Tablet PO 06/30/24 20:59 6 mg HS WON Administration Meperidine HCl 12.5 mg 06/01/24 16:42 Meperidine Inj 50 Mg/Ml Vial IV 06/06/24 16:41 Q5M PRN SHIVERING Morphine Sulfate 4 mg 06/02/24 16:05 06/03/24 08:44 Morphine Sulf Inj 10 Mg/Ml Vial IVP 06/05/24 17:03 4 mg Q4H PRN Administration PAIN SCALE 7-10 (Severe Ondansetron HCl 4 mg 05/31/24 17:04 Ondansetron Inj 2 Mg/Ml Inj 2 Ml IV 06/30/24 17:03 Q6H PRN NAUSEA OR VOMITING Protocol Oxycodone/Acetaminophen 1 tab 05/31/24 17:04 06/03/24 11:03 Oxycodone/Apap 5/325 Tablet PO 06/05/24 17:03 1 tab Q6H PRN Administration PAIN SCALE 4-6 (Moderate Sennosides 1 tab 06/02/24 09:00 06/03/24 08:43 Senna Tablet PO 07/02/24 08:59 1 tab QDAY WON Administration Protocol Tizanidine HCl 4 mg 05/31/24 17:20 06/01/24 22:20 Tizanidine Hcl 2 Mg Tablet PO 06/30/24 20:59 4 mg HS PRN Administration MUSCLE SPASMS Zolpidem Tartrate 10 mg 06/02/24 16:04 06/02/24 21:29 Zolpidem 5 Mg Tablet PO 07/02/24 16:03 10 mg HS PRN Administration INSOMNIA Plan 68 y/o F with PMHX of HTN, DM, spinal stenosis who presents with L hip pain after a ground level fall. Xray showed intertrochanteric fracture L hip. Orthopedic surgeon Dr. Hemphill was consulted and performed left hip ORIF on 06/02/2024. #s/p Open reduction internal fixation with trochanteric fixation nail. #L Hip intertrochanteric fracture #Ground level fall Patient had a mechanical fall, but denies loss of consciousness Head CT showed Negative for acute hemorrhage, mass effect or midline shift Xray shows L intertrochanteric fracture; Echo shows EF: 60 to 65% no significant valvular disease PT evaluated the patient recommended SNF placement Spoke to Dr. Hemphill recommended aspirin 81 mg twice daily for DVT prophylaxis Currently on IV medication with addition to p.o. route in the a.m. -On IV morphine, will transition to p.o. route in a.m. -Zofran PRN Nausea -Aspirin 81mg BID for DVT prophylaxis #Chronic Normocytic Anemia Hgb 11 MCV 89 in ED [employer], refuses blood products B12/folate nl; Iron 57 TIBC 359 iron sat 15 ferritin 8 Hemoglobin continues to be on the lower side today 8.5 -Follow-up H&H in the afternoon #Hx of HTN Home meds HCTZ 25mg po and lisinopril 20mg po BP soft this morning -Will restart antihypertensives when BP permits #Hx of DM II takes metformin 500mg BID at home; A1C 8.9 -SSI -Hypoglycemia protocol in place -Basal 12u glargine #Hx of spinal stenosis Follows with Neurosurgery outpatient management -On home tizanidine and Gabapentin Case discussed with my senior Dr. Kidd PGY-[address] Fidencio Ace MD PGY-1 Disposition: Medsurg Fluids: None Feeding: Carb consistent Thrombo prophylaxis: Aspirin 81mg BID Gastric Ulcer prophylaxis: none CODE STATUS: DNR.. Senior resident attestation: Patient evaluated and examined at the bedside, plan of care discussed with rest of the team including my attending physician, except as noted. -The patient s/p hip repair for a left hip fracture, postop day 1, physical therapy ordered, but patient was unable to work with PT due to severe pain unable to stand, continued on IV analgesia. ?Dr. Montoya recommended aspirin 81 mg twice daily for DVT prophylaxis following surgical hip repair. ?Monitor for bleeding, patient is a Spiritism, refuses blood transfusion. ? Continue reporting pain, we discussed switching over to p.o. [place] for analgesia, but patient prefers to stay on IV morphine for 1 more day. Marti PGY2 Attending Provider Attestation/Addendum I have examined the patient, reviewed labs and imaging findings, discussed the case with the resident(s), and reviewed entered orders. I agree with the plan of care as outlined in this note, with these additional summaries/recommendations: Patient seen at bedside. Patient is postoperative day #2 status post ORIF with trochanteric fixation nail and synthesis implant for displaced intertrochanter fracture of left hip. Patient tolerated the procedure well. She reports she has been able to stand with PT although unable to ambulate thus far. Continue pain management with oral [place] and IV morphine for breakthrough pain. Hemoglobin did downtrend from 10.1-8.9-8.5 and we will continue to monitor. Patient is a Spiritism and denies all blood products. Continue basal and bolus insulin for history of diabetes mellitus type 2. Continue home antihypertensives. We will monitor closely for bowel movement. Repeat hematology and chemistry panel in AM. Dr. Nicolas
--- NOTE | 2024-06-03 13:52 | PC.SS ---
Rounding: Pending [employer]
--- NOTE | 2024-06-03 13:54 | PC.SS ---
Rounding: WBC low, monitor overnight possible DC 06/04
[2024-06-03 14:39] LABS: Hemoglobin 8.4 g/dL (12.0-16.0)
--- NOTE | 2024-06-03 16:01 | PC.SS ---
File exchanged pt [facility] to [facility]
[2024-06-03] MEDS: GABAPENTIN 100 MG CAPSULE PO (20:25)
[2024-06-03] MEDS: MELATONIN 3 MG TABLET 6 MG PO (20:25)
[2024-06-03] MEDS: INSULIN GLARGINE (Lantus) 5 UNIT/0.05 ML (PER 5 UNITS) 12 UNIT SC (20:27)
[2024-06-03] MEDS: INSULIN LISPRO (AdmeLOG) 1 UNIT/0.01 ML UNIT SC (20:28)
[2024-06-04] VITALS (7 sets, daily range): BP systolic 108–154; BP diastolic 60–82; PULSE 69–85; RESP 14–17; TEMP 36.5–37.1; O2SAT 95–98; BMI 30.7
[2024-06-04] MEDS: MORPHINE SULF INJ 10 MG/ML VIAL 4 MG IVP (04:07)
[2024-06-04] MEDS: oxyCODONE/APAP 5/325 TABLET 1 TAB PO (05:35)
[2024-06-04 05:50] LABS: Basophils % (Auto) 0 % (0-2.5); Eosinophils # (Auto) 0.1 Thou/mm3 (0.0-0.5); Eosinophils % (Auto) 1 % (0-10); Hematocrit 26.8 % (36.0-46.0); Immature Granulocytes % (Auto) 0 % (0-0); Immature Granulocytes Auto 0.02 Thou/mm3 (0.00-0.00); Lymphocytes # (Auto) 1.9 Thou/mm3 (1.0-4.8); Lymphocytes % (Auto) 24 % (10-50); Mean Corpuscular HGB Conc 32.5 g/dl (31.0-37.0); Mean Corpuscular Hemoglobin 28.3 pg (25.0-35.0); Mean Corpuscular Volume 87 fL (80-100); Monocytes # (Auto) 0.8 Thou/mm3 (0.0-0.8); Monocytes % (Auto) 10 % (0-12); Neutrophils # (Auto) 5.2 Thou/mm3 (1.8-7.7); Neutrophils % (Auto) 65 % (37-80); Nucleated Red Blood Cell % 0 /100 WBC (0); Platelet Count 211 Thou/mm3 (140-440); RDW Standard Deviation 46.9 fL (36.4-46.3); Red Blood Count 3.07 Miln/mm3 (4.00-5.20); White Blood Count 8.1 Thou/mm3 (3.6-11.0)
[2024-06-04 06:02] LABS: Hemoglobin 8.7 g/dL (12.0-16.0)
[2024-06-04] MEDS: SENNA TABLET 1 TAB PO (08:05)
[2024-06-04] MEDS: ASPIRIN EC 81 MG TABEC PO (08:05)
[2024-06-04] MEDS: HYDROcodone/APAP 7.5/325 TABLET 1 TAB PO (08:55)
--- NOTE | 2024-06-04 09:02 | PC.SS ---
Addendum entered by SUZI Ling 06/04/24 09:20: Received call from Britney, informs patient has authorization to SNF, [facility]. Authorization is good and active for the next couple days per Britney they will be closed tomorrow and Tuesday due to the Holiday. Original Note: SS update: contacted Britney with [employer], to determine if they will give insurance authorization for patient to go to SNF. Britney informs she will review PT notes and give a call back with an update. Patient is a possible discharge for today.
[2024-06-04] MEDS: POTASSIUM CHLORIDE 20 mEq TABCR 40 MEQ PO (09:07)
--- NOTE | 2024-06-04 10:00 | PC.SS ---
Addendum entered by SUZI Ling 06/04/24 15:07: Notified patient's friend, Marcelo Hope of todays d/c to [facility]. Addendum entered by SUZI Ling 06/04/24 14:19: [facility] ETA 3pm. Bed side nurse is aware, [facility] staff is aware. Addendum entered by SUZI Ling 06/04/24 12:33: Lynne at [facility] is aware we are just pending transport ETA. Addendum entered by SUZI Ling 06/04/24 12:27: Patient to d/c today to [facility]. Patient informs she is unable to pay for transport services. Contacted [facility] transport services. Pending ETA. Original Note: SS follow up: met with patient to notify her [employer] gave insurance authorization for SNF. Plan is to discharge to [facility]. Patient is a possible discharge today.
--- NOTE | 2024-06-04 10:01 | PC.NURSE ---
notified of patient not having bowel movement since 05/30/24. Provider to place order
[2024-06-04] MEDS: INSULIN LISPRO (AdmeLOG) 1 UNIT/0.01 ML UNIT SC (12:00)
--- NOTE | 2024-06-04 12:09 | PC.NURSE ---
[place] catheter removed at 1205
--- NOTE | 2024-06-04 13:05 | PC.NURSE ---
Report called to Lalitha quispe at [facility]
--- NOTE | 2024-06-04 14:03 | ESDS_ITS ---
Planned Discharge Date 06/04/24 DS: Providers Provider Date of admission: 05/31/24 17:04 Primary care physician: Agustín Luna MD Admitting Provider: Mikey Nicolas MD Attending Provider on Admission: Mikey Nicolas MD Consults: 05/31/24 14:39 Consult to Orthopedic Stat Comment: Intertrochanteric fracture left Consulting Provider: Josef Montoya 05/31/24 17:10 Referral Physical Therapy Routine Comment: Physician Instructions: Instructions: Hip fx 06/01/24 19:27 Referral Physical Therapy Routine Comment: Gait Training. Both legs full weight bear Physician Instructions: Attending Provider on DC: Tony Montiel DO Discharging Provider: Scout Ace MD Anticipated date of discharge: 06/04/24 DS: Diagnosis Problem List Completed Was Problem List Reviewed/Reconciled?: Yes Hospital Course Hospital Course Hospital course: 68 F Je[employer] Witness with PMHX of Hypertension, Diabetes Mellitus, spinal stenos is who presented to the ED with L hip pain after a ground level fall. Hip Xray showed intertrochanteric fracture Left hip. Patient was admitted for hip fracture and orthopedic surgery. During Hospital stay Cardiology, Dr. Peguero was consulted as patient required cardiac clearance prior to surgery. Echocardiogram was done and cardiology cleared the patient for surgery. Orthopedic surgeon, Dr. Badillo was consulted and performed Open reduction internal fixation with trochanteric fixation nail. Post-operatively while on the floors patient had Physical therapy evaluation, and pain was managed with IV pain medications and later transitioned to oral medications. Patient was monitored and was passing gas and had a bowel movement post-opertaively. Patient at this time is medically stable for discharge. You are being discharged with 2 weeks of aspirin 81 mg twice daily to prevent clot formation in your legs, per orthopedic surgeons recommendations. You can follow-up with Dr. Montoya of at his office on Tuesday at 2:30pm or within 2 weeks of discharge from the hospital. Further anticoagulation/aspirin treatment per orthopedic surgeons recommendation. Recommend following up with your primary care physician within 5 days of discharge from hospital, recommend increasing metformin to 3 times daily with meals and consider adding another oral medication for better diabetes control. Please follow-up with your primary doctor for diabetes management. In case of worsening symptoms, please return to the emergency room. Problem List: #s/p Open reduction internal fixation with trochanteric fixation nail. #Left Hip intertrochanteric fracture #Ground level fall #Chronic Normocytic Anemia #Hx of HTN #Hx of DM II #Hx of spinal stenosis Case discussed with my senior Dr. Wilks PGY-[address] Tiana Ace MD PGY-1 Status at Discharge Functional status at discharge: independent ambulation Overall status at discharge: patient is progressing back to baseline Time Spent with Patient Time attestation: Total time spent providing and/or coordinating discharge services: Time spent: Greater than 30 minutes Exam Vital Signs Temp Pulse Resp BP Pulse Ox O2 Del Method O2 Flow Rate 98.6 F 82 14 154/82 H 98 Room Air 4 06/04/24 11:57 06/04/24 12:00 06/04/24 11:57 06/04/24 11:57 06/04/24 11:57 06/04/24 11:57 06/01/24 17:55 Narrative Exam Physical Exam GENERAL: NAD, AAOx3 HEENT: Moist mucosa. Eyes open, symmetrical, & clear CARDIO: Heart RRR, no obvious murmurs PULM: No noted coughing/dyspnea CTA B/L, no R/W/R GI: Abdomen soft, nondistended, no pain on palpation. BSx4 SKIN/MSK/EXT: No wounds/rashes/edema/amputations, no pain on palpation. some pain in LLE-improving, Pedal pulses present B/L NEURO: AAOx3, no focal neuro deficits, able to move all 4 extremities Discharge Plan Plan Patient Disposition: Xfer Skilled Nsg Fac (SNF) Disposition Comment: stable Care Plan Goals: You are being discharged with 2 weeks of aspirin 81 mg twice daily to prevent clot formation in your legs, per orthopedic surgeons recommendations. You can follow-up with Dr. Montoya of at his office within 2 weeks of discharge from the hospital. Further anticoagulation/aspirin treatment per orthopedic surgeons recommendation. Recommend following up with your primary care physician within 5 days of discharge from hospital, recommend increasing metformin to 3 times daily with meals and consider adding another oral medication for better diabetes control. Please follow-up with your primary doctor for diabetes management. Patient can take norco 10 for 7 days for pain until she sees her orthopedic doc. In case of worsening symptoms, please return to the emergency room. Prescriptions/Referrals Prescriptions/Med Rec: New aspirin 81 mg Tablet,Delayed Release (Dr/Ec) 81 mg PO BID 14 Days Qty: 28 0RF metformin 500 mg tablet 500 mg PO TIDWMEAL 14 Days Qty: 42 0RF hydrocodone-acetaminophen 10-300 mg tablet 1 tab PO Q6H MDD no more than 4 per day PRN (Reason: pain) 8 Days Qty: 32 0RF Continued lisinopril 20 mg Tablet 20 mg PO QDAY hydrochlorothiazide 25 mg Tablet 25 mg PO QAM zolpidem [Ambien] 10 mg Tablet 10 mg PO HS cyclobenzaprine 5 mg tablet 5 mg PO Q8H Qty: 7 0RF docusate sodium [Stool Softener] 100 mg capsule 100 mg PO QDAY PRN (Reason: constipation) Qty: 30 0RF Discontinued metformin 500 mg Tablet 500 mg PO BID Referrals: Agustín Luna MD [Primary Care Provider] - Patient/Caregiver Discharge Instructions Education Materials: Surgery Anesthesia After, Preventing Surgical Site Infections Print Language: Chadian Stand Alone Forms: Juli Award Info., Patient Portal Info Letter Discharge Order Discharge Orders: Discharge (Routine); Ordered 06/04/24 Ordered By: Scout Ace Quality Discharge Quality Measures VTE prophylaxis MD Attestestation MD Attestation I have discussed and was present for the essential components of the discharge history, physical examination, diagnosis, and discharge treatment plan with the resident. I agree with the patient's discharge care as documented by the resident and amended herein by me. Florian Montiel DO. The patient understood all discharge instructions, all questions were answered satisfactorily. The patient was instructed to return to the Emergency Department is symptoms worsened or persisted. Although this document has been carefully reviewed, there may still be some phonetic and other typographical errors. These errors are purely grammatical due to imperfections in the software program and should not be construed in any way to compromise the substance of the patient's medical care during this visit. Since
== END 2024-06-04 15:00 | disposition skilled nursing facility (03) | DRG 482 ==
LOC: SERX 15:37 → SERHOLD 17:40 → S3SX 19:59
PROVIDERS: Nurse Practitioner Family; Orthopaedic Surgery; Student in an Organized Health Care Education/Training Program; Admitting Provider Student in an Organized Health Care Education/Training Program; Emergency Provider Emergency Medicine; PCP Family Medicine; Visit Provider Student in an Organized Health Care Education/Training Program
PROC: 0QS704Z Reposition Left Upper Femur with Internal Fixation Device, Open Approach (ICD-10-PCS; CPT 27245; principal; 2024-06-01 16:30)
DX: S72.142A Displaced intertrochanteric fracture of left femur, initial encounter for closed fracture (principal); E11.40 Type 2 diabetes mellitus with diabetic neuropathy, unspecified; I35.8 Other nonrheumatic aortic valve disorders; I11.9 Hypertensive heart disease without heart failure; M48.00 Spinal stenosis, site unspecified; E78.5 Hyperlipidemia, unspecified; G89.29 Other chronic pain; D64.9 Anemia, unspecified; Z86.73 Personal history of transient ischemic attack (TIA), and cerebral infarction without residual deficits; Z66 Do not resuscitate; Z53.1 Procedure and treatment not carried out because of patient's decision for reasons of belief and group pressure; Z79.84 Long term (current) use of oral hypoglycemic drugs; Z90.49 Acquired absence of other specified parts of digestive tract; Z98.84 Bariatric surgery status; Z90.710 Acquired absence of both cervix and uterus; W01.0XXA Fall on same level from slipping, tripping and stumbling without subsequent striking against object, initial encounter; Y93.01 Activity, walking, marching and hiking; Y92.009 Unspecified place in unspecified non-institutional (private) residence as the place of occurrence of the external cause
CPT/HCPCS: 36415; 70450; 71045; 73502; 73552; 76000; 80048; 80053; 81001; 82607; 82728; 82746; 83036; 83540; 83550; 83735; 83880; 84100; 84443; 84484; 85014; 85018; 85025; 85610; 85730; 86850; 86900; 86901; 93005; 93225; 93306; 96374; 96376; 97162; 99285; A4217; A4649; C1713; C1776; J0131; J0689; J0690; J1100; J1580; J1815; J2250; J2270; J2704; J2795; J3010; J3490; Q0162; A9270; J1805

== ENCOUNTER 2024-06-17 01:37 | Inpatient (IN) | payer OTHER, MEDICARE, SELFPAY ==
[2024-06-17] VITALS (12 sets, daily range): BP systolic 107–152; BP diastolic 67–94; PULSE 88–105; RESP 16–22; TEMP 36.6–37; O2SAT 92–100; BMI 29.2; BMI 31.1
--- NOTE | 2024-06-17 02:24 | PC.NURSE ---
PER PATIENT SHE HASNT HAD A BOWEL MOVEMENT SINCE SHE ARRIVED AT THE FACILITY ON 06/04/24. PT HAS NO COMPLAINTS OTHERWISE. PT STATES SHE IS THERE DUE TO A POSSIBLE HIP FRACTURE
--- NOTE | 2024-06-17 04:29 | XR_ITS ---
Examination: Abdomen AP single view Technique: AP portable supine abdomen, single view Exam date and time: June 17, 2024 0435 hrs. Indications: Abdominal pain and constipation beginning 8 days ago. Findings: Moderate to large amounts of air and stool throughout the colon Small bowel ileus with a few loops of air distended small bowel in the central and left abdomen No definite obstruction Surgical clips upper right abdomen No free air Mild prominence left ventricle Impression: Moderate to large amounts of residual throughout the colon Mild small bowel ileus
--- NOTE | 2024-06-17 05:21 | EDRME_ITS ---
Rapid Medical Screening Exam RME Arrival date/time: 06/17/24 01:37 Chief Complaint: Abdominal Pain Vital signs: Vital Signs Temperature 97.9 F 06/17/24 02:14 Pulse Rate 105 H 06/17/24 02:14 Respiratory Rate 18 06/17/24 02:14 Blood Pressure 113/73 06/17/24 02:14 Pulse Oximetry (%) 95 06/17/24 02:14 Oxygen Delivery Method Room Air 06/17/24 02:14 68-year-old female from [facility] who presents to the emergency department for constipation. Patient reports she has had no bowel movements since 06-05-24 when she admitted to SNF s/p ORIF with trochanteric fixation nail by Dr. Hemphill following acute hospitalization here. She also reports rectal pain otherwise has no other complaints. Patient reports she had just informed the facility she has had no bowel movements. She reports receiving 2 Dulcolax and 3 enemas at the facility without improvement. She is alert, oriented x4 with GCS 15. Per facility POLST, she is DNR. Initial labs and orders have been made to be followed up by oncoming dayshift provider.
[2024-06-17 05:40] LABS: Basophils # (Auto) 0.1 Thou/mm3 (0.0-0.2); Basophils % (Auto) 0 % (0-2.5); Eosinophils # (Auto) 0.1 Thou/mm3 (0.0-0.5); Eosinophils % (Auto) 1 % (0-10); Hematocrit 31.1 % (36.0-46.0); Immature Granulocytes % (Auto) 1 % (0-0); Immature Granulocytes Auto 0.08 Thou/mm3 (0.00-0.00); Lymphocytes # (Auto) 1.2 Thou/mm3 (1.0-4.8); Lymphocytes % (Auto) 8 % (10-50); Mean Corpuscular HGB Conc 32.2 g/dl (31.0-37.0); Mean Corpuscular Hemoglobin 28.6 pg (25.0-35.0); Mean Corpuscular Volume 89 fL (80-100); Monocytes # (Auto) 0.6 Thou/mm3 (0.0-0.8); Monocytes % (Auto) 4 % (0-12); Neutrophils # (Auto) 13.3 Thou/mm3 (1.8-7.7); Neutrophils % (Auto) 87 % (37-80); Nucleated Red Blood Cell % 0 /100 WBC (0); Platelet Count 478 Thou/mm3 (140-440); RDW Standard Deviation 49.1 fL (36.4-46.3); White Blood Count 15.4 Thou/mm3 (3.6-11.0)
[2024-06-17 06:01] LABS: Partial Thromboplastin Time 25.9 Seconds (22.0-36.0); Prothrombin Time 10.6 Seconds (9.0-12.2)
[2024-06-17 06:04] LABS: Alanine Aminotransferase 13 U/L (10-49); Albumin, Serum 3.9 gm/dL (3.4-4.8); Albumin/Globulin Ratio 1.6 (1.2-2.2); Alkaline Phosphatase 169 U/L (46-116); Anion Gap 10 (7-16); Aspartate Amino Transferase 24 U/L (0-34); BUN/Creatinine Ratio 28 Ratio (12-20); Bilirubin,Total 0.5 mg/dL (0.3-1.2); Blood Urea Nitrogen 22 mg/dL (9-23); Calcium 9.6 mg/dL (8.3-10.6); Calcium (Corrected) 9.7 mg/dL (8.5-10.1); Carbon Dioxide 26.3 mMol/L (20.0-31.0); Chloride 103 mMol/L (98-107); Creatinine (Component) 0.8 mg/dL (0.6-1.3); Globulin 2.4 gm/dL (2.3-3.5); Glucose 150 mg/dL (74-106); Osmolality,Calculated 283 (275-295); Potassium 4.2 mMol/L (3.4-5.1); Sodium 139 mMol/L (136-145); Total Protein 6.3 gm/dL (5.7-8.2); eGFR > 60 See Note
--- NOTE | 2024-06-17 06:22 | PC.NURSE ---
gabriella from [facility] calling to check on the status of pt and inform us that pt has not had a bm since June 06.
--- NOTE | 2024-06-17 07:23 | PD.EDABDPN ---
ED Abdominal Pain RME/HPI General Chief Complaint: Abdominal Pain Stated complaint: CONSTIPATION Time seen by provider: 06/17/24 07:22 Arrival date/time: 06/17/24 01:37 RME / HPI RME / HPI narrative: DR. HARRY MAIN ED EVALUATION: 68 year old female with past medical history significant for diabetes mellitus, hypertension, spinal stenosis, gastric bypass surgery, bedridden, recent left hip surgery 06/01/24 (Josef Montoya), taking narcotic pain killers daily presents to the Emergency Department BIB from [facility] with complaint of constipation. EMS states that per facility, the patient had no bowel movement since June 06. Symptoms are moderate. Enemas were given at the facility without any relief of symptoms. Patient denies any dysuria or any other symptoms at this time. Related Data Home Medications ?Medication ?Instructions ?Recorded ?Confirmed hydrochlorothiazide 25 mg tablet 25 mg PO QAM 07/01/20 07/01/20 lisinopril 20 mg tablet 20 mg PO QDAY 07/01/20 07/01/20 zolpidem 10 mg tablet (Ambien) 10 mg PO HS 07/01/20 07/01/20 Previous Rx's ?Medication ?Instructions ?Recorded cyclobenzaprine 5 mg tablet 5 mg PO Q8H #7 tabs 12/31/23 docusate sodium 100 mg capsule 100 mg PO QDAY PRN constipation 12/31/23 (Stool Softener) #30 caps Allergies Allergy/AdvReac Type Severity Reaction Status Date / Time No Known Allergies Allergy Verified 06/01/24 17:14 Review of Systems Review of Systems Systems Reviewed: All systems reviewed, normal except as documented Narrative Review of Systems: GEN: No fever, no chills, no weight loss EYES: No discharge, no visual changes, no pain HEENT: No ear pain, no congestion, no sore throat PULM: No shortness of breath, no cough, no congestion CV: No chest pain, no dyspnea on exertion, no palpitations GI: No nausea, no vomiting, no diarrhea, no pain, + constipation : No frequency, no urgency and no dysuria MUSC/SKEL: No joint pain, no back pain SKIN: No rash PSYCH: No hallucinations, no depression HEME/LYMPH: No easy bleeding or bruising tendencies NEURO: No weakness, no headache Past Medical History Past Medical History NEUROLOGIC: Positive Neurological Disorders and Cerebrovascular Accident (2000); Negative Seizures CARDIAC: Positive Congestive Heart Failure (On Hydrochlorothiazide) and Hypertension (On BP Meds); Negative Cardiac Disorders RESPIRATORY: Negative Chronic Obstructive Pulmonary Disease (COPD) or Asthma GASTROINTESTINAL: Negative Gastrointestinal Disorders or Hepatitis GENITOURINARY: Negative Genitourinary Disorders or Renal Disease REPRODUCTIVE: Negative Pelvic Inflammatory Disease MUSCULOSKELETAL: Positive Musculoskeletal Disorders and Degenerative Disk Disease ENDOCRINE: Positive Endocrine Disorders and Diabetes Mellitus Type 2; Negative Diabetes Mellitus Type 1 HEMATOLOGIC: Negative Blood Disorders or Sickle Cell Disease OTHER HISTORY: Negative Autoimmune Disease, Blood Transfusions, Anesthesia Reactions, MRSA, Human Immunodeficiency Virus (HIV), Chicken Pox, Measles, Mumps, Rubella (Irish Measles), Pertussis, Clostridium Difficile or Cancer Surgical History SURGICAL: Positive Abdominal Surgery, Gastric Bypass Surgery (2004) and Hysterectomy (1997 Partial); Negative Cardiac Surgery, Endocrine Surgery, Ear Surgery, Nephrectomy or Joint Replacement Social History SMOKING STATUS: Never smoker ED Exam Narrative Physical exam: GENERAL APPEARANCE: Well hydrated, well nourished, in no acute distress. VITALS: All vitals were reviewed and the pulse ox is 95% on room air which is normal according to my interpretation. HEENT: Normocephalic, atramatic, EOMI, EACs are patent. There is no bulge or retraction. Throat without erythema or exudate. Moist oromucosa. No jaundice NECK: Supple, no JVD or bruits. CARDIOVASCULAR: Heart regular without S3-S4 or murmur. No rubs or gallops. LUNGS/CHEST: Clear to auscultation bilaterally. No rales, rhonchi, or wheezing. Normal inspection. ABDOMEN: There is diffuse tenderness, but mainly in the left upper quadrant. Normal bowel sounds. No pulsatile masses. No rebound, rigidity, or guarding. No flank tenderness. EXTREMITIES: Patient had recent left hip surgery, so limited ROM of left leg and left hip. No edema, clubbing, or cyanosis. Intact CSM. SKIN: Warm and dry without rashes. Normal inspection. MUSCULOSKELETAL: No gross deformity. Normal inspection. NEURO: Alert and oriented x3. Cranial nerves II through XII grossly intact. There are no other motor or sensory deficits noted. PSYCHIATRIC: Normal mood and affect. No psychosis. Course Quality Measures none Orders Category Date Time Status CT Screening NOW Care 06/17/24 07:26 Active Enema Administration NOW Care 06/17/24 12:[address] abdomen pelvis w con Stat Exams 06/17/24 07:26 Completed KUB [XR abdomen 1V] Stat Exams 06/17/24 04:29 Completed CBC Stat Lab 06/17/24 05:00 Completed Comprehensive Metabolic Panel Stat Lab 06/17/24 05:00 Completed Partial Thromboplastin Time Stat Lab 06/17/24 05:00 Completed Prothrombin Time with INR Stat Lab 06/17/24 05:00 Completed UA [Urinalysis] Stat Lab 06/17/24 07:10 Completed Sodium Chloride 0.9% 1000 ml [Ns] 1,000 ml Med 06/17/24 07:26 Discontinued IV 250 mls/hr Vital Signs Vital signs: Vital Signs Temperature 97.9 F 06/17/24 02:14 Pulse Rate 105 H 06/17/24 02:14 Respiratory Rate 18 06/17/24 02:14 Blood Pressure 113/73 06/17/24 02:14 Pulse Oximetry (%) 95 06/17/24 02:14 Oxygen Delivery Method Room Air 06/17/24 02:14 Abdominal Pain MDM MDM Narrative MDM Narrative:: I, Consuelo Irwin, am scribing for and in the presence of Dr. Harry. CBC white count of 15,000. CMP negative. Alk phos is chronically elevated. PT is negative. PTT is negative. UA is negative. Abdominal x-ray is interpreted by me: Constipation. No air-fluid level. No free air under the diaphragm. Osteopenic bones. CT abdomen and pelvic was done and was read by Dr. Khadar Reed. Please see his report. In my review, and I agree that there is constipation as well. No air-fluid level. No free air. No free fluid. No stranding. I spoke to and discussed with Dr. Kidd at 1 PM, he wants patient to receive some enema first. We proceeded to give the patient subset enema. But it did not work. 2:42 PM, I spoke to resident on-call for Dr. Ugarte, attending hospitalist. He agreed to admit the patient for further evaluation treatment. Thank you very much Patient data External records reviewed:: [facility] previous records (Reviewed last admission discharge dated 06/04/24, patient admitted for the following: Closed intertrochanteric fracture of femur.), EMS form and [facility] records Clinical information provided by:: patient and EMS Social determinants that could affect healthcare access:: housing ([facility]) Patient has the following chronic illnesses:: Diabetes mellitus, hypertension, spinal stenosis, gastric bypass surgery, bedridden, recent left hip surgery 06/01/24 (Josef Montoya), taking narcotic pain killers daily. How is presenting disease/condition affected by chronic disease/condition?: exacerbated by Evaluation data The following diagnostics were reviewed and interpreted by me:: lab results and radiology exam(s) Lab and/or radiology exams considered but not ordered:: none Interpretation Summary: See above under MDM narrative. RADIOLOGY Procedure(s): XR abdomen 1V Accession Number(s): [id number] cc: Khadar Reed MD; Sirisha Otto MD; Agustín Luna MD~ Examination: Abdomen AP single view Technique: AP portable supine abdomen, single view Exam date and time: June 17, 2024 0435 hrs. Indications: Abdominal pain and constipation beginning 8 days ago. Findings: Moderate to large amounts of air and stool throughout the colon Small bowel ileus with a few loops of air distended small bowel in the central and left abdomen No definite obstruction Surgical clips upper right abdomen No free air Mild prominence left ventricle Impression: Moderate to large amounts of residual throughout the colon Mild small bowel ileus Dictated By: Khadar Reed MD Procedure(s): CT abdomen pelvis w con Accession Number(s): [id number] cc: Khadar Reed MD; Troy Harry MD; Agustín Luna MD~ Examination: CT abdomen with intravenous contrast CT pelvis with intravenous contrast 2-D coronal reconstructions 2-D sagittal reconstructions Date and time of exam:June 17, 2024 0748 hrs. Indications: Constipation beginning 10 days ago, recent history surgery. CTDI: vol (mGy) 21.2 DLP: (mGycm) 1181 Technique: Multiple axial sections of the abdomen and pelvis have been obtained. 64 slice high-resolution scanner used. 3 mm axial sections have been obtained, post intravenous injection 60 cc [id number] 2-D sagittal, coronal reconstructions obtained. Low dose protocols were performed. One or more of the following dose reduction techniques were used; automated exposure control, adjustment of the mA and/or KV according to patient size, use of iterative reconstruction technique. Findings: No focal liver lesions Absent gallbladder Spleen not enlarged Atrophic pancreas No renal or ureteral calculi, no hydronephrosis Abundant stool throughout the colon Normal appendix No bowel obstruction No diverticulitis Large amounts of stool in the rectum with thickening of the rectal wall, proctitis pattern Urinary bladder intact Severe osteopenia Postop reduction internal fixation intertrochanteric fracture left hip with satisfactory alignment Orthopedic hardware exhibits satisfactory position Diffuse advanced lumbar degenerative disc disease Chronic osteoporotic compression, moderate T10 Impression: Fecal loading, large amounts of stool throughout the colon Large amounts of stool in the rectum with proctitis pattern No obstruction Normal appendix No diverticulitis Recent postop reduction internal fixation intertrochanteric fracture left hip with satisfactory alignment Dictated By: Khadar Reed MD Medications / Prescriptions Medications or Prescriptions considered but not ordered:: none Medication administrations:: Medication Administration History Discontinued Medications Sodium Chloride (Ns) 1,000 mls @ 250 mls/hr IV .Q4H ONE Stop: 06/17/24 11:25 Last Infusion: 06/17/24 12:46 Dose: Infused Documented By: Admin: 06/17/24 08:12 Dose: 250 mls/hr Documented By: AM see above if any Consultations Consultation(s) initiated? (list below): Yes Consultation #1 (Physician, Specialty, Details): Discussed test HPI, PMHx, lab, radiology results and/or management with hospitalist. Will admit for further evaluation and management. Accepts patient for admission. Time: 12:40 Diagnosis Differential diagnosis abdominal pain: abdominal pain, constipation and small bowel obstruction Most likely diagnosis given after review of the tests above:: Abdominal pain. Severe constipation Admission Indicated Admission indicated?: indicated Admission Request Was there a request for admission?: Yes Admission Attestation Admission request attestation: Discussed case with [] from Hospitalist service regarding admission. Discussed patients ED course, exam findings, labs, and radiology results. The Hospitalist [agrees,declines] to accept the patient for admission. Disposition Plan Disposition Plan: Admit Discharge Plan Plan Patient Disposition: Admit Acute Care w/in Hospital Disposition Comment: Stable for admit Prescriptions/Referrals Prescriptions/Med Rec: No Action lisinopril 20 mg Tablet 20 mg PO QDAY hydrochlorothiazide 25 mg Tablet 25 mg PO QAM zolpidem [Ambien] 10 mg Tablet 10 mg PO HS cyclobenzaprine 5 mg tablet 5 mg PO Q8H Qty: 7 0RF docusate sodium [Stool Softener] 100 mg capsule 100 mg PO QDAY PRN (Reason: constipation) Qty: 30 0RF Referrals: Agustín Luna MD [Primary Care Provider] - In 1 week Problem List Clinical Impression: Constipation Patient/Caregiver Discharge Instructions Print Language: Uzbek Stand Alone Forms: Juli Award Info., Patient Portal Info Letter
--- NOTE | 2024-06-17 07:26 | XR_ITS ---
Examination: CT abdomen with intravenous contrast CT pelvis with intravenous contrast 2-D coronal reconstructions 2-D sagittal reconstructions Date and time of exam:June 17, 2024 0748 hrs. Indications: Constipation beginning 10 days ago, recent history surgery. CTDI: vol (mGy) 21.2 DLP: (mGycm) 1181 Technique: Multiple axial sections of the abdomen and pelvis have been obtained. 64 slice high-resolution scanner used. 3 mm axial sections have been obtained, post intravenous injection 60 cc [id number]-370 2-D sagittal, coronal reconstructions obtained. Low dose protocols were performed. One or more of the following dose reduction techniques were used; automated exposure control, adjustment of the mA and/or KV according to patient size, use of iterative reconstruction technique. Findings: No focal liver lesions Absent gallbladder Spleen not enlarged Atrophic pancreas No renal or ureteral calculi, no hydronephrosis Abundant stool throughout the colon Normal appendix No bowel obstruction No diverticulitis Large amounts of stool in the rectum with thickening of the rectal wall, proctitis pattern Urinary bladder intact Severe osteopenia Postop reduction internal fixation intertrochanteric fracture left hip with satisfactory alignment Orthopedic hardware exhibits satisfactory position Diffuse advanced lumbar degenerative disc disease Chronic osteoporotic compression, moderate T10 Impression: Fecal loading, large amounts of stool throughout the colon Large amounts of stool in the rectum with proctitis pattern No obstruction Normal appendix No diverticulitis Recent postop reduction internal fixation intertrochanteric fracture left hip with satisfactory alignment
[2024-06-17 07:52] LABS: Collection Type, Urine Clean Catch
[2024-06-17] MEDS: SODIUM CHLORIDE 0.9% 1000 ML 1,000 ML 250 ML IV (08:12)
[2024-06-17 08:17] LABS: Bilirubin,Urine Negative (Negative); Blood,Urine Negative (Negative); Budding Yeast,Urine Present; Clarity,Urine Clear (Clear/Hazy); Color,Urine Yellow (Lt Yel-Yel); Glucose, Urine Negative (Negative); Ketones,Urine 1+ (Negative); Leukocyte Esterase,Urine Negative (Negative); Nitrite,Urine Negative (Negative); Protein,Urine Negative (Neg - Trace); RBC,Urine 2 /hpf (0-3); Squamous Epithelial Cell,Urine < 1 /hpf (0-5); Urobilinogen,Urine Negative mg/dL (0.0-1.0); WBC,Urine 4 /hpf (0-5)
--- NOTE | 2024-06-17 14:07 | PC.NURSE ---
Pt given soap jordan enema. Pt complain of pressure and pain to lower abdomen. Pt states she still cannot have a bm. Dr. Grimes informed that pt states she feels like she the bm will not come out. Pt encouraged to keep moving and turning in bed.
--- NOTE | 2024-06-17 16:54 | ESHP_ITS ---
Documentation for date of: 06/17/24 HPI History of Present Illness History of present illness: Ms. Sun is a 68-year-old female, a Jehovah witness, with past medical history significant for hypertension, diabetes mellitus, osteoporosis and spinal stenosis presented to the ED complaining of increasing abdominal discomfort and constipation. Patient was hospitalized on 05/31/2024 after a ground-level fall causing Displaced intertrochanter fracture left hip; patient is status post Open reduction internal fixation with trochanteric fixation nail on 06/01/24. Patient states that her last bowel movement was on 06/01 and since then she has been taking pain medications and in rehab patient was started on Percocet twice daily on 07 June. Patient also states that she along with abdominal discomfort she has had nausea and vomiting. At the rehab center patient received 3 Fleet enemas without successful bowel movement. Patient has history of hemorrhoids which is causing her increasing amount of pain and unable to have a bowel movement. Patient denies any prior history of similar episodes. ED course: Initial vitals are stable except patient is mildly tachycardic with heart rate of 105. WBC 15.4 hemoglobin 10, hematocrit 31. All other labs including CMP and urinalysis is unremarkable. Images: abdominal xray- Moderate to large amounts of residual throughout the colon, Mild small bowel ileus CT abdomen/pelvis- Fecal loading, large amounts of stool throughout the colon, Large amounts of stool in the rectum with proctitis pattern In the ED patient is given 1 L normal saline maintenance and soapsuds enema PMH: [id number]-[id number] type II diabetes, essential hypertension, osteoporosis, spinal stenosis PSH: Gastric bypass (2000), hysterectomy and cholecystectomy SH: Denies tobacco alcohol or illicit drugs Home meds: Ibuprofen 600mg twice daily, metformin 500 Mg twice daily, Ambien 10 mg at bedtime, lisinopril 20 Mg daily Review of Systems Review of Systems Systems Reviewed: All systems reviewed, normal except as documented Exam Vital Signs Temp Pulse Resp BP Pulse Ox O2 Del Method 98.0 F 100 18 125/86 H 95 Room Air 06/17/24 16:05 06/17/24 16:05 06/17/24 16:05 06/17/24 16:05 06/17/24 16:05 06/17/24 16:05 Narrative Exam GENERAL: A&Ox3 . Awake, Not in acute distress NEURO: no focal neurological deficits HEENT: Atraumatic, Normocephalic. mucous membranes moist. Eyes open, symmetrical, & clear HEART: Normal Heart Sounds LUNGS: Clear to auscultation with no wheezing or crackles. ABDOMEN: soft, non-distended, non-tender, bowel sounds heard, no guarding or rebound tenderness SKIN: No Rash or ecchymoses EXTREMITIES: No edema, tenderness, able to move all 4 extremities, pedal pulses palpated Results: Labs 06/19/24 05:39 06/19/24 05:39 Labs: Short CBC 06/17/24 Range/Units 05:00 WBC 15.4 H (3.6-11.0) Thou/mm3 Hgb 10.0 L (12.0-16.0) g/dL Hct 31.1 L (36.0-46.0) % Plt Count 478 H D (140-440) Thou/mm3 BMP 06/17/24 05:00 Sodium 139 Potassium 4.2 Chloride 103 Carbon Dioxide 26.3 BUN 22 Creatinine 0.8 Glucose 150 H Calcium 9.6 Liver Function 06/17/24 Range/Units 05:00 Total Bilirubin 0.5 (0.3-1.2) mg/dL AST 24 (0-34) U/L ALT 13 (10-49) U/L Alkaline Phosphatase 169 H (46-116) U/L Albumin 3.9 (3.4-4.8) gm/dL Urine 06/17/24 Range/Units 07:10 Urine Color Yellow (Lt Yel-Yel) Urine Clarity Clear (Clear/Hazy) Urine pH 6.0 (5.0-7.0) Ur Specific [place] 1.020 (1.001-1.035) Urine Protein Negative (Neg - Trace) Urine Glucose (UA) Negative (Negative) Quality Measures Quality Measures none Advance care planning discussed with:: patient Medications Home Medications and Allergies Home Medications ?Medication ?Instructions ?Recorded ?Confirmed ?Type hydrochlorothiazide 25 mg tablet 25 mg PO QAM 07/01/20 07/01/20 History lisinopril 20 mg tablet 20 mg PO QDAY 07/01/20 07/01/20 History zolpidem 10 mg tablet (Ambien) 10 mg PO HS 07/01/20 07/01/20 History Allergies Allergy/AdvReac Type Severity Reaction Status Date / Time No Known Allergies Allergy Verified 06/01/24 17:14 Visit Medications Acetaminophen (Acetaminophen 325 Mg Tablet) 650 mg PO Q6H PRN PRN Reason: PAIN OR FEVER > 100.3 Stop: 07/17/24 16:32 Docusate Sodium (Docusate Sod 100 Mg Capsule) 100 mg PO QDAY PRN; Protocol PRN Reason: CONSTIPATION Stop: 07/17/24 16:32 Enoxaparin Sodium (Enoxaparin Sod Inj 40 Mg/0.4 Ml Syringe) 40 mg SC QDAY WON Stop: 07/02/24 08:59 Lisinopril (Lisinopril 20 Mg Tablet) 20 mg PO QDAY WON Stop: 07/18/24 08:59 Metformin HCl (Metformin 500 Mg Tablet) 500 mg PO BIDAC WON Stop: 07/17/24 16:59 Ondansetron HCl (Ondansetron Inj 2 Mg/Ml Inj 2 Ml) 4 mg IV Q6H PRN; Protocol PRN Reason: NAUSEA OR VOMITING Stop: 07/17/24 16:32 Zolpidem Tartrate (Zolpidem 5 Mg Tablet) 10 mg PO HS PRN PRN Reason: INSOMNIA Stop: 07/17/24 20:59 Discontinued Medications Sodium Chloride (Ns) 1,000 mls @ 250 mls/hr IV .Q4H ONE Stop: 06/17/24 11:25 Last Infusion: 06/17/24 12:46 Dose: Infused Polyethylene Glycol/Electrolytes (Na [place]/Nahco3/Connor/Peg (Golytely) 4,000 Ml Btl) 4,000 ml PO X1 ONE Stop: 06/17/24 16:43 Assessment & Plan Plan Ms. Sun is a 68-year-old female, a Jehovah witness, with past medical history significant for hypertension, diabetes mellitus, osteoporosis and spinal stenosis presented to the ED complaining of increasing abdominal discomfort and constipation. Patient was hospitalized on 05/31/2024 after a ground-level fall causing Displaced intertrochanter fracture left hip; patient is status post Open reduction internal fixation with trochanteric fixation nail on 06/01/24. Patient states that her last bowel movement was on 06/01 and since then she has been taking pain medications and in rehab patient was started on Percocet twice daily on 07 June. Patient also states that she along with abdominal discomfort she has had nausea and vomiting. At the rehab center patient received 3 Fleet enemas without successful bowel movement. Patient has history of hemorrhoids which is causing her increasing amount of pain and unable to have a bowel movement. Patient denies any prior history of similar episodes. # Opiate induced constipation -Pt's last bowel movement was on 06/01/24. Pt has been taking morphine during hospitalization and Percocet in rehab for pain control status post hip fixation surgery. Other contributory factors include immobility likely due to recent surgery -In rehab patient was given Fleet enema x3 without successful bowel movement -In the ED patient received soapsuds enema and manual disimpaction without success -abdominal xray- Moderate to large amounts of residual throughout the colon, Mild small bowel ileus CT abdomen/pelvis- Fecal loading, large amounts of stool throughout the colon, Large amounts of stool in the rectum with proctitis pattern Plan: -Full liquid diet, encouraged oral hydration -GoLytely ordered -Avoid opioids s/p Open reduction internal fixation with trochanteric fixation nail. #L Hip intertrochanteric fracture #Ground level fall -Patient had a mechanical fall and underwent fixation surgery on 06/01/24 -Currently in rehab s/p surgery #Chronic Normocytic Anemia -Hgb 10.0, Hct 31.1 MCV 89 in ED -Pt is a Jewish, refuses blood products -During previous admission on 05/31: B12/folate nl; Iron 57 TIBC 359 iron sat 15 ferritin 8 Plan: -Will monitor daily CBC -advised pt's against the use of ibuprofen as it increases risks for gastric ulcers and to switch ibuprofen to Tylenol at home #Hx of HTN -Home meds lisinopril 20mg po -BP stable -resumed home Lisinopril #Hx of DM II takes metformin 500mg BID at home; -HA1C 8.9 on 06/01/24 -resumed home meds #Hx of spinal stenosis -Follows with Neurosurgery -outpatient management Disposition: Medsurg DVT Prophylaxis: enoxaparin 40mg Qdaily SCD QSHIFT Diet: full liquid diet Code status: Full Assessment and plan discussed with my attending physician Dr. Shanel Nguyen (PGY-1)- Internal medicine resident Attending Provider Attestation/Addendum 68-year-old Jehovah witness female with hypertension, type 2 diabetes mellitus with recent left hip surgical intervention on 06/01/2024 who presented with opiate induced constipation with significant intractable abdominal pain. Also noted to have acute urinary retention likely related to constipation. Patient denies any saddle anesthesia or lower extremity weakness. Plan to start patient on GoLytely and monitor closely.I reviewed above note and agree with findings and plans. I have also personally examined the patient with medicine team and went over assessment and plan with medical team including general internal medicine physician and resident physician.
[2024-06-17] MEDS: NA SU/NAHCO3/KC/PEG (Golytely) 4,000 ML BTL 4000 ML PO (17:17)
--- NOTE | 2024-06-17 17:23 | PC.NURSE ---
Pt started on golytely
[2024-06-17] MEDS: metFORMIN 500 MG TABLET PO (17:39)
--- NOTE | 2024-06-17 19:04 | PC.NURSE ---
MD made aware that pt is having pain when trying to have a BM. pt is admitted for constipation since 06/06. MD to place orders. Will continue to monitor
[2024-06-17] MEDS: ZOLPIDEM 5 MG TABLET 10 MG PO (22:43)
[2024-06-18] VITALS (10 sets, daily range): BP systolic 140–161; BP diastolic 76–86; PULSE 90–102; RESP 16–18; TEMP 36.2–36.7; O2SAT 91–97
[2024-06-18 05:58] LABS: Basophils % (Auto) 0 % (0-2.5); Eosinophils # (Auto) 0.1 Thou/mm3 (0.0-0.5); Eosinophils % (Auto) 1 % (0-10); Hematocrit 27.7 % (36.0-46.0); Immature Granulocytes % (Auto) 0 % (0-0); Immature Granulocytes Auto 0.03 Thou/mm3 (0.00-0.00); Lymphocytes # (Auto) 1.3 Thou/mm3 (1.0-4.8); Lymphocytes % (Auto) 9 % (10-50); Mean Corpuscular HGB Conc 32.5 g/dl (31.0-37.0); Mean Corpuscular Hemoglobin 28.2 pg (25.0-35.0); Mean Corpuscular Volume 87 fL (80-100); Monocytes # (Auto) 0.8 Thou/mm3 (0.0-0.8); Monocytes % (Auto) 6 % (0-12); Neutrophils # (Auto) 12.2 Thou/mm3 (1.8-7.7); Neutrophils % (Auto) 85 % (37-80); Nucleated Red Blood Cell % 0 /100 WBC (0); Platelet Count 417 Thou/mm3 (140-440); RDW Standard Deviation 48.9 fL (36.4-46.3); Red Blood Count 3.19 Miln/mm3 (4.00-5.20); White Blood Count 14.5 Thou/mm3 (3.6-11.0)
[2024-06-18 06:14] LABS: Partial Thromboplastin Time 28.6 Seconds (22.0-36.0); Prothrombin Time 11.4 Seconds (9.0-12.2)
[2024-06-18 06:30] LABS: Alanine Aminotransferase 19 U/L (10-49); Albumin, Serum 3.4 gm/dL (3.4-4.8); Albumin/Globulin Ratio 1.5 (1.2-2.2); Alkaline Phosphatase 154 U/L (46-116); Anion Gap 15 (7-16); Aspartate Amino Transferase 25 U/L (0-34); BUN/Creatinine Ratio 22 Ratio (12-20); Bilirubin,Total 0.6 mg/dL (0.3-1.2); Blood Urea Nitrogen 13 mg/dL (9-23); Calcium 8.6 mg/dL (8.3-10.6); Calcium (Corrected) 9.1 mg/dL (8.5-10.1); Carbon Dioxide 22.8 mMol/L (20.0-31.0); Chloride 101 mMol/L (98-107); Cholesterol 114 mg/dL (132-200); Creatinine (Component) 0.6 mg/dL (0.6-1.3); Estimated Creatinine Clearance 83.9 mL/min (>60); Globulin 2.2 gm/dL (2.3-3.5); Glucose 136 mg/dL (74-106); HDL Cholesterol 58 mg/dL (40-60); LDL Cholesterol,Calculated 41 mg/dL (0-130); Magnesium 1.7 mg/dL (1.6-2.6); Osmolality,Calculated 279 (275-295); Phosphorous 2.7 mg/dL (2.4-5.1); Potassium 3.3 mMol/L (3.4-5.1); Sodium 139 mMol/L (136-145); Thyroid Stimulating Hormone 4.39 uIU/mL (0.55-4.78); Total Protein 5.6 gm/dL (5.7-8.2); Triglycerides 73 mg/dL (30-150); eGFR > 60 See Note
[2024-06-18] MEDS: metFORMIN 500 MG TABLET PO ×2 (08:51→18:15)
[2024-06-18] MEDS: POTASSIUM CHLORIDE 20 mEq TABCR 40 MEQ PO (08:51)
[2024-06-18] MEDS: Lisinopril 20 MG TABLET PO (08:51)
[2024-06-18] MEDS: ENOXAPARIN SOD INJ 40 MG/0.4 ML SYRINGE SC (08:52)
[2024-06-18] MEDS: SODIUM CHLORIDE 0.9% 500 ML 500 ML 999 ML IV (08:55)
--- NOTE | 2024-06-18 09:12 | XR_ITS ---
Examination: Abdomen AP single view Technique: AP portable supine abdomen, single view Exam date and time: June 18, 2024 0927 hours INDICATIONS: Abdominal pain constipation this week FINDINGS: Moderate narrowing stool throughout the colon A few loops of air distended small bowel Surgical clips upper right abdomen No free air Lung bases clear Contrast in the urinary bladder IMPRESSION: Mild small bowel ileus
--- NOTE | 2024-06-18 11:05 | PC.SS ---
Follow up note: Pt has not had bowel movement. GI will be consulted.
[2024-06-18] MEDS: DOCUSATE SOD 100 MG CAPSULE PO (18:18)
--- NOTE | 2024-06-18 18:47 | PD.RESPRO ---
Documentation for date of: 06/18/24 Subjective Subjective Interval history: 06/18: No acute overnight events patient seen and examined at bedside this morning patient continues to have extreme rectal pain. Patient drinks GoLytely however still is unable to pass any stool patient is been having some mucousy loose smears of stool. Patient denies nausea vomiting or abdominal pain. Patient also refused the suppository overnight. Bladder scan showed greater than 300 cc of urine straight cath removed 550 cc of urine. informed the patient we will consult GI. Exam Vital Signs Temp Pulse Resp BP Pulse Ox O2 Del Method O2 Flow Rate 97.6 F 97 18 140/83 H 93 L Room Air 2 06/18/24 15:59 06/18/24 15:59 06/18/24 15:59 06/18/24 15:59 06/18/24 15:59 06/18/24 15:59 06/17/24 18:18 Narrative Exam GENERAL: A&Ox3 . Awake, Not in acute distress NEURO: no focal neurological deficits HEENT: Atraumatic, Normocephalic. mucous membranes moist. Eyes open, symmetrical, & clear HEART: Normal Heart Sounds LUNGS: Clear to auscultation with no wheezing or crackles. ABDOMEN: soft, non-distended, non-tender, bowel sounds heard, no guarding or rebound tenderness SKIN: No Rash or ecchymoses EXTREMITIES: No edema, tenderness, able to move all 4 extremities, pedal pulses palpated Objective Labs 06/19/24 05:39 06/19/24 05:39 Labs: Laboratory Results - last 24 hr 06/18/24 05:13 WBC 14.5 H RBC 3.19 L Hgb 9.0 L Hct 27.7 L MCV 87 MCH 28.2 MCHC 32.5 RDW Std Deviation 48.9 H Plt Count 417 D Neut % (Auto) 85 H Lymph % (Auto) 9 L [place] % (Auto) 6 Eos % (Auto) 1 Baso % (Auto) 0 Neut # (Auto) 12.2 H Lymph # (Auto) 1.3 [place] # (Auto) 0.8 Eos # (Auto) 0.1 Baso # (Auto) 0.0 Immature Gran # (Auto) 0.03 H Absolute Nucleated RBC 0.00 Immature Gran % 0 Nucleated RBC % 0 PT 11.4 INR 1.0 APTT 28.6 Sodium 139 Potassium 3.3 L D Chloride 101 Carbon Dioxide 22.8 Anion Gap 15 BUN 13 Creatinine 0.6 Estim Creat Clear Calc 83.9 eGFR > 60 BUN/Creatinine Ratio 22 H Glucose 136 H Calculated Osmolality 279 Calcium 8.6 Corrected Calcium 9.1 Phosphorus 2.7 Magnesium 1.7 Total Bilirubin 0.6 AST 25 ALT 19 Alkaline Phosphatase 154 H Total Protein 5.6 L Albumin 3.4 D Globulin 2.2 L Albumin/Globulin Ratio 1.5 Triglycerides 73 Cholesterol 114 L LDL Cholesterol, Calc 41 HDL Cholesterol 58 Cholesterol/HDL Ratio 2.0 L TSH 4.39 D Quality Measures Quality Measures none Advance care planning discussed with:: patient Assessment & Plan Assessment Current Active Medications: Generic Name Dose Route Start Last Admin Trade Name Freq PRN Reason Stop Dose Admin Acetaminophen 650 mg 06/17/24 16:33 Acetaminophen 325 Mg Tablet PO 07/17/24 16:32 Q6H PRN PAIN OR FEVER > 100.3 Bisacodyl 10 mg 06/17/24 18:52 Bisacodyl 10 Mg Supp MA 07/17/24 18:51 QDAY PRN CONSTIPATION Protocol Docusate Sodium 100 mg 06/17/24 16:33 06/18/24 18:18 Docusate Sod 100 Mg Capsule PO 07/17/24 16:32 100 mg QDAY PRN Administration CONSTIPATION Protocol Enoxaparin Sodium 40 mg 06/18/24 09:00 06/18/24 08:52 Enoxaparin Sod Inj 40 Mg/0.4 Ml Syringe SC 07/02/24 08:59 40 mg QDAY WON Administration Lisinopril 20 mg 06/18/24 09:00 06/18/24 08:51 Lisinopril 20 Mg Tablet PO 07/18/24 08:59 20 mg QDAY WON Administration Metformin HCl 500 mg 06/17/24 17:00 06/18/24 18:15 Metformin 500 Mg Tablet PO 07/17/24 16:59 500 mg BIDAC WON Administration Ondansetron HCl 4 mg 06/17/24 16:33 Ondansetron Inj 2 Mg/Ml Inj 2 Ml IV 07/17/24 16:32 Q6H PRN NAUSEA OR VOMITING Protocol Zolpidem Tartrate 10 mg 06/17/24 21:00 06/17/24 22:43 Zolpidem 5 Mg Tablet PO 02/04/25 20:59 10 mg HS PRN Administration INSOMNIA Plan Ms. Sun is a 68-year-old female, a Jehovah witness, with past medical history significant for hypertension, diabetes mellitus, osteoporosis and spinal stenosis presented to the ED complaining of increasing abdominal discomfort and constipation. Patient was hospitalized on 05/31/2024 after a ground-level fall causing Displaced intertrochanter fracture left hip; patient is status post Open reduction internal fixation with trochanteric fixation nail on 06/01/24. Patient states that her last bowel movement was on 06/01 and since then she has been taking pain medications and in rehab patient was started on Percocet twice daily on 07 June. Patient also states that she along with abdominal discomfort she has had nausea and vomiting. At the rehab center patient received 3 Fleet enemas without successful bowel movement. Patient has history of hemorrhoids which is causing her increasing amount of pain and unable to have a bowel movement. Patient denies any prior history of similar episodes. # Opiate induced constipation -Pt's last bowel movement was on 06/01/24. Pt has been taking morphine during hospitalization and Percocet in rehab for pain control status post hip fixation surgery. Other contributory factors include immobility likely due to recent surgery -In rehab patient was given Fleet enema x3 without successful bowel movement -In the ED patient received soapsuds enema and manual disimpaction without success -abdominal xray- Moderate to large amounts of residual throughout the colon, Mild small bowel ileus CT abdomen/pelvis- Fecal loading, large amounts of stool throughout the colon, Large amounts of stool in the rectum with proctitis pattern Plan: -Full liquid diet, encouraged oral hydration -GoLytely ordered -Suppository ordered -Avoid opioids -Consult GI appreciate recommendations s/p Open reduction internal fixation with trochanteric fixation nail. #L Hip intertrochanteric fracture #Ground level fall -Patient had a mechanical fall and underwent fixation surgery on 06/01/24 -Currently in rehab s/p surgery #Chronic Normocytic Anemia -Hgb 9.0, Hct 27.7 MCV 87 -Pt is a Latter day, refuses blood products -During previous admission on 05/31: B12/folate nl; Iron 57 TIBC 359 iron sat 15 ferritin 8 Plan: -Will monitor daily CBC -advised pt's against the use of ibuprofen as it increases risks for gastric ulcers and to switch ibuprofen to Tylenol at home #Hx of HTN -Home meds lisinopril 20mg po -BP stable -resumed home Lisinopril #Hx of DM II takes metformin 500mg BID at home; -HA1C 8.9 on 06/01/24 -resumed home meds #Hx of spinal stenosis -Follows with Neurosurgery -outpatient management Disposition: Medsurg DVT Prophylaxis: enoxaparin 40mg Qdaily SCD QSHIFT Diet: full liquid diet Code status: Full Assessment and plan discussed with my attending physician Dr. Shanel Nguyen (PGY-1)- Internal medicine resident Senior resident attestation: Patient evaluated and examined at the bedside, plan of care discussed with rest of the team including my attending physician, except as noted. Patient is a 68-year-old female, Sabianist, with a recent hip replacement surgery few weeks ago and was prescribed Percocet, likely leading to opioid-induced constipation, patient has not had a bowel movement for days. Feels distended and complaining of abdominal pain. Initial imaging shows abundant stool, no obstruction. Patient was given enema in the ER, but no bowel movement, she also received enemas multiple times at the snf facility with no relief. Gastroenterology was consulted and patient was admitted to the medical floor for GoLytely. Marti PGY2 Attending Provider Attestation/Addendum 68-year-old Jehovah witness female with hypertension, type 2 diabetes mellitus with recent left hip surgical intervention on 06/01/2024 who presented with opiate induced constipation with significant intractable abdominal pain. Also noted to have acute urinary retention likely related to constipation. Patient denies any saddle anesthesia or lower extremity weakness. Plan to start patient on GoLytely and monitor closely.I reviewed above note and agree with findings and plans. I have also personally examined the patient with medicine team and went over assessment and plan with medical team including manager of international and resident physician.
--- NOTE | 2024-06-18 20:19 | PD.IMCONS ---
HPI Data of Consult Requesting Physician: Keegan Ugarte MD Primary Care Provider: Agustín Luna MD Consult Narrative Reason for consult: Abnormal CT AP, stool impaction, proctitis History of present illness: 68 years of female transferred from a shelter for abdominal pain obstipation constipation She has not gone to the bathroom for almost [address] scan of the abdomen pelvis showed large stool burden in the left colon along with proctitis spectrum And a recent left hip ORIF Patient does have a history of diabetes mellitus type 2 essential hypertension spinal stenosis gastric bypass surgery and bedridden She has been on narcotics with Percocet at least twice a day in the shelter cc:: cc: Keegan Ugarte MD Review of Systems Review of Systems ROS Unobtainable: unobtainable due to medical condition Past Medical History Surgical History OTHER SURGICAL HX: As in the history of present illness Meds Home Medications and Allergies Home Medications ?Medication ?Instructions ?Recorded ?Confirmed ?Type hydrochlorothiazide 25 mg tablet 25 mg PO QAM 07/01/20 07/01/20 History lisinopril 20 mg tablet 20 mg PO QDAY 07/01/20 07/01/20 History zolpidem 10 mg tablet (Ambien) 10 mg PO HS 07/01/20 07/01/20 History Allergies Allergy/AdvReac Type Severity Reaction Status Date / Time No Known Allergies Allergy Verified 06/01/24 17:14 Exam Vital Signs Temp Pulse Resp BP Pulse Ox O2 Del Method O2 Flow Rate 97.6 F 97 18 140/83 H 93 L Room Air 2 06/18/24 15:59 06/18/24 15:59 06/18/24 15:59 06/18/24 15:59 06/18/24 15:59 06/18/24 15:59 06/17/24 18:18 Constitutional Comments: Chronically ill-appearing Routine Abdominal Exam Comments: Somewhat distended positive bowel sounds No localizing tenderness Results Labs 06/18/24 05:13 06/18/24 05:13 Labs: Short CBC 06/18/24 Range/Units 05:13 WBC 14.5 H (3.6-11.0) Thou/mm3 Hgb 9.0 L (12.0-16.0) g/dL Hct 27.7 L (36.0-46.0) % Plt Count 417 D (140-440) Thou/mm3 BMP 06/18/24 05:13 Sodium 139 Potassium 3.3 L D Chloride 101 Carbon Dioxide 22.8 BUN 13 Creatinine 0.6 Glucose 136 H Calcium 8.6 Liver Function 06/18/24 Range/Units 05:13 Total Bilirubin 0.6 (0.3-1.2) mg/dL AST 25 (0-34) U/L ALT 19 (10-49) U/L Alkaline Phosphatase 154 H (46-116) U/L Albumin 3.4 D (3.4-4.8) gm/dL Assessment and Plan Additional Assessment & Plan Additional Plan: # Stool impaction with obstipation constipation most likely due to the overuse of narcotics Plan Clear liquid diet Agree with Maia Recommend manual disimpaction It will take time but it will clear out Will follow the patient closely Proctitis is most likely due to stool impaction Will follow the patient Thank you very much for the opportunity to participate in the care of this patient Other medical problems include # Diabetes mellitus type 2 # Essential hypertension # Spinal stenosis # Gastric bypass surgery # Bedridden
[2024-06-18] MEDS: ZOLPIDEM 5 MG TABLET 10 MG PO (23:11)
[2024-06-19] VITALS (8 sets, daily range): BP systolic 138–152; BP diastolic 67–86; PULSE 67–98; RESP 16–18; TEMP 36.2–36.9; O2SAT 93–99
[2024-06-19 06:34] LABS: Basophils % (Auto) 0 % (0-2.5); Eosinophils # (Auto) 0.1 Thou/mm3 (0.0-0.5); Eosinophils % (Auto) 1 % (0-10); Hematocrit 26.8 % (36.0-46.0); Immature Granulocytes % (Auto) 0 % (0-0); Immature Granulocytes Auto 0.06 Thou/mm3 (0.00-0.00); Lymphocytes # (Auto) 1.3 Thou/mm3 (1.0-4.8); Lymphocytes % (Auto) 9 % (10-50); Mean Corpuscular HGB Conc 32.1 g/dl (31.0-37.0); Mean Corpuscular Hemoglobin 28.3 pg (25.0-35.0); Mean Corpuscular Volume 88 fL (80-100); Monocytes # (Auto) 0.8 Thou/mm3 (0.0-0.8); Monocytes % (Auto) 6 % (0-12); Neutrophils # (Auto) 12.2 Thou/mm3 (1.8-7.7); Neutrophils % (Auto) 84 % (37-80); Nucleated Red Blood Cell % 0 /100 WBC (0); Platelet Count 418 Thou/mm3 (140-440); RDW Standard Deviation 50.4 fL (36.4-46.3); Red Blood Count 3.04 Miln/mm3 (4.00-5.20); White Blood Count 14.5 Thou/mm3 (3.6-11.0)
[2024-06-19 06:45] LABS: Hemoglobin 8.6 g/dL (12.0-16.0)
[2024-06-19 07:27] LABS: Alanine Aminotransferase 13 U/L (10-49); Albumin, Serum 3.3 gm/dL (3.4-4.8); Albumin/Globulin Ratio 1.6 (1.2-2.2); Alkaline Phosphatase 149 U/L (46-116); Anion Gap 15 (7-16); Aspartate Amino Transferase 17 U/L (0-34); BUN/Creatinine Ratio 16 Ratio (12-20); Bilirubin,Total 0.5 mg/dL (0.3-1.2); Blood Urea Nitrogen 11 mg/dL (9-23); Calcium (Corrected) 9.6 mg/dL (8.5-10.1); Carbon Dioxide 20.2 mMol/L (20.0-31.0); Chloride 105 mMol/L (98-107); Creatinine (Component) 0.7 mg/dL (0.6-1.3); Globulin 2.1 gm/dL (2.3-3.5); Glucose 102 mg/dL (74-106); Magnesium 1.7 mg/dL (1.6-2.6); Osmolality,Calculated 278 (275-295); Potassium 3.7 mMol/L (3.4-5.1); Sodium 140 mMol/L (136-145); Total Protein 5.4 gm/dL (5.7-8.2); eGFR > 60 See Note
[2024-06-19] MEDS: metFORMIN 500 MG TABLET PO ×2 (08:14→17:41)
[2024-06-19] MEDS: Lisinopril 20 MG TABLET PO (09:25)
[2024-06-19] MEDS: ENOXAPARIN SOD INJ 40 MG/0.4 ML SYRINGE SC (09:25)
--- NOTE | 2024-06-19 15:40 | PD.RESPRO ---
Documentation for date of: 06/19/24 Subjective Subjective Interval history: Patient seen at bedside today. This morning she appeared uncomfortable due to the fact that she still had not had a large bowel movement. Following throughout the day nursing staff informed us that she did have a large bowel movement and her urination improved. Will still follow through with bladder scans Q6 hourly as scheduled and will straight catheter if more than 300 cc of urine are found in her bladder. Will see if GI still requires a manual fecal disimpaction but patient may have had enough of a bowel movement to allow for smooth passage. Exam Vital Signs Temp Pulse Resp BP Pulse Ox O2 Del Method O2 Flow Rate 97.4 F 96 16 152/79 H 93 L Room Air 2 06/19/24 12:00 06/19/24 12:00 06/19/24 12:00 06/19/24 12:00 06/19/24 12:00 06/19/24 12:00 06/17/24 18:18 Narrative Exam GENERAL: A&Ox3 . Awake, Not in acute distress NEURO: no focal neurological deficits HEENT: Atraumatic, Normocephalic. mucous membranes moist. Eyes open, symmetrical, & clear HEART: Normal Heart Sounds LUNGS: Clear to auscultation with no wheezing or crackles. ABDOMEN: soft, non-distended, non-tender, bowel sounds heard, no guarding or rebound tenderness SKIN: No Rash or ecchymoses EXTREMITIES: No edema, tenderness, able to move all 4 extremities, pedal pulses palpated Objective Labs 06/19/24 05:39 06/19/24 05:39 Labs: Laboratory Results - last 24 hr 06/19/24 05:39 WBC 14.5 H RBC 3.04 L Hgb 8.6 L Hct 26.8 L MCV 88 MCH 28.3 MCHC 32.1 RDW Std Deviation 50.4 H Plt Count 418 Neut % (Auto) 84 H Lymph % (Auto) 9 L [place] % (Auto) 6 Eos % (Auto) 1 Baso % (Auto) 0 Neut # (Auto) 12.2 H Lymph # (Auto) 1.3 [place] # (Auto) 0.8 Eos # (Auto) 0.1 Baso # (Auto) 0.0 Immature Gran # (Auto) 0.06 H Absolute Nucleated RBC 0.00 Immature Gran % 0 Nucleated RBC % 0 Sodium 140 Potassium 3.7 Chloride 105 Carbon Dioxide 20.2 Anion Gap 15 BUN 11 Creatinine 0.7 Estim Creat Clear Calc 72.0 eGFR > 60 BUN/Creatinine Ratio 16 Glucose 102 Calculated Osmolality 278 Calcium 9.0 Corrected Calcium 9.6 Phosphorus 3.0 Magnesium 1.7 Total Bilirubin 0.5 AST 17 ALT 13 Alkaline Phosphatase 149 H Total Protein 5.4 L Albumin 3.3 L Globulin 2.1 L Albumin/Globulin Ratio 1.6 Quality Measures Quality Measures none Advance care planning discussed with:: patient Assessment & Plan Assessment Current Active Medications: Generic Name Dose Route Start Last Admin Trade Name Freq PRN Reason Stop Dose Admin Acetaminophen 650 mg 06/17/24 16:33 Acetaminophen 325 Mg Tablet PO 07/17/24 16:32 Q6H PRN PAIN OR FEVER > 100.3 Bisacodyl 10 mg 06/17/24 18:52 Bisacodyl 10 Mg Supp SC 07/17/24 18:51 QDAY PRN CONSTIPATION Protocol Docusate Sodium 100 mg 06/17/24 16:33 06/18/24 18:18 Docusate Sod 100 Mg Capsule PO 07/17/24 16:32 100 mg QDAY PRN Administration CONSTIPATION Protocol Enoxaparin Sodium 40 mg 06/18/24 09:00 06/19/24 09:25 Enoxaparin Sod Inj 40 Mg/0.4 Ml Syringe SC 07/02/24 08:59 40 mg QDAY WON Administration Lisinopril 20 mg 06/18/24 09:00 06/19/24 09:25 Lisinopril 20 Mg Tablet PO 07/18/24 08:59 20 mg QDAY WON Administration Metformin HCl 500 mg 06/17/24 17:00 06/19/24 08:14 Metformin 500 Mg Tablet PO 07/17/24 16:59 500 mg BIDAC WON Administration Ondansetron HCl 4 mg 06/17/24 16:33 Ondansetron Inj 2 Mg/Ml Inj 2 Ml IV 07/17/24 16:32 Q6H PRN NAUSEA OR VOMITING Protocol Zolpidem Tartrate 10 mg 06/17/24 21:00 06/18/24 23:11 Zolpidem 5 Mg Tablet PO 07/17/24 20:59 10 mg HS PRN Administration INSOMNIA Plan Ms. Sun is a 68-year-old female, a Jehovah witness, with past medical history significant for hypertension, diabetes mellitus, osteoporosis and spinal stenosis presented to the ED complaining of increasing abdominal discomfort and constipation. Patient was hospitalized on 05/31/2024 after a ground-level fall causing Displaced intertrochanter fracture left hip; patient is status post Open reduction internal fixation with trochanteric fixation nail on 06/01/24. Patient states that her last bowel movement was on 06/01 and since then she has been taking pain medications and in rehab patient was started on Percocet twice daily on 07 June. Patient also states that she along with abdominal discomfort she has had nausea and vomiting. At the rehab center patient received 3 Fleet enemas without successful bowel movement. Patient has history of hemorrhoids which is causing her increasing amount of pain and unable to have a bowel movement. Patient denies any prior history of similar episodes. # Opiate induced constipation -Pt's last bowel movement was on 06/01/24. Pt has been taking morphine during hospitalization and Percocet in rehab for pain control status post hip fixation surgery. Other contributory factors include immobility likely due to recent surgery -In rehab patient was given Fleet enema x3 without successful bowel movement -In the ED patient received soapsuds enema and manual disimpaction without success -abdominal xray- Moderate to large amounts of residual throughout the colon, Mild small bowel ileus CT abdomen/pelvis- Fecal loading, large amounts of stool throughout the colon, Large amounts of stool in the rectum with proctitis pattern Plan: -Full liquid diet, encouraged oral hydration -GoLytely ordered -Suppository ordered -Avoid opioids -Consult GI appreciate recommendations, Dr. Nolan suggests that he may do fecal disimpaction. Patient supposedly did have a large movement on June 19, 2024. #Acute urinary retention Likely secondary to large amount of stool in the rectum Patient has straight cath yesterday with over 1000 cc of urine removed. Will continue with bladder scans every 6 hourly to assess for urine volume. If urine volume greater than 300 cc then we will straight cath patient. s/p Open reduction internal fixation with trochanteric fixation nail. #L Hip intertrochanteric fracture #Ground level fall -Patient had a mechanical fall and underwent fixation surgery on 06/01/24 -Currently in rehab s/p surgery #Chronic Normocytic Anemia -Hgb 9.0, Hct 27.7 MCV 87 -Pt is a Gnosticism, refuses blood products -During previous admission on 05/31: B12/folate nl; Iron 57 TIBC 359 iron sat 15 ferritin 8 Plan: -Will monitor daily CBC -advised pt's against the use of ibuprofen as it increases risks for gastric ulcers and to switch ibuprofen to Tylenol at home #Hx of HTN -Home meds lisinopril 20mg po -BP stable -resumed home Lisinopril #Hx of DM II takes metformin 500mg BID at home; -HA1C 8.9 on 06/01/24 -resumed home meds #Hx of spinal stenosis -Follows with Neurosurgery -outpatient management Disposition: Medsurg DVT Prophylaxis: enoxaparin 40mg Qdaily SCD QSHIFT Diet: full liquid diet Code status: Full Assessment and plan discussed with my attending physician Dr. Shanel Nguyen (PGY-1)- Internal medicine resident Attending Provider Attestation/Addendum 68-year-old Jehovah witness female with hypertension, type 2 diabetes mellitus with recent left hip surgical intervention on 06/01/2024 who presented with opiate induced constipation with significant intractable abdominal pain. Also noted to have acute urinary retention likely related to constipation. Patient denies any saddle anesthesia or lower extremity weakness. Plan to start patient on GoLytely and monitor closely.I reviewed above note and agree with findings and plans. I have also personally examined the patient with medicine team and went over assessment and plan with medical team including internal specialist and resident physician.
[2024-06-19] MEDS: SENNA TABLET 1 TAB PO (17:41)
--- NOTE | 2024-06-19 18:15 | PC.NURSE ---
bladder scanned the patient had 480 ml urine pt refused straight cath, educated on importance of voiding, notified Dr. Bah he would like for another bladder scan in 2 hours, I MD informed patient had several bowel movements and was voiding throughout the day. patients bladder no longer feels distended per my assessment at this time.
--- NOTE | 2024-06-19 18:53 | ESPR_ITS ---
Documentation for date of: 06/19/24 Subjective Subjective Interval history: Good results with GoLytely Patient still having brown stools She never had a colonoscopy Additional GoLytely till patient admitted clear schedule colonoscopy Exam Vital Signs Temp Pulse Resp BP Pulse Ox O2 Del Method O2 Flow Rate 97.4 F 96 16 152/79 H 93 L Room Air 2 06/19/24 12:00 06/19/24 12:00 06/19/24 12:00 06/19/24 12:00 06/19/24 12:00 06/19/24 12:00 06/17/24 18:18 Objective Labs 06/19/24 05:39 06/19/24 05:39 Labs: Laboratory Results - last 24 hr 06/19/24 05:39 WBC 14.5 H RBC 3.04 L Hgb 8.6 L Hct 26.8 L MCV 88 MCH 28.3 MCHC 32.1 RDW Std Deviation 50.4 H Plt Count 418 Neut % (Auto) 84 H Lymph % (Auto) 9 L [place] % (Auto) 6 Eos % (Auto) 1 Baso % (Auto) 0 Neut # (Auto) 12.2 H Lymph # (Auto) 1.3 [place] # (Auto) 0.8 Eos # (Auto) 0.1 Baso # (Auto) 0.0 Immature Gran # (Auto) 0.06 H Absolute Nucleated RBC 0.00 Immature Gran % 0 Nucleated RBC % 0 Sodium 140 Potassium 3.7 Chloride 105 Carbon Dioxide 20.2 Anion Gap 15 BUN 11 Creatinine 0.7 Estim Creat Clear Calc 72.0 eGFR > 60 BUN/Creatinine Ratio 16 Glucose 102 Calculated Osmolality 278 Calcium 9.0 Corrected Calcium 9.6 Phosphorus 3.0 Magnesium 1.7 Total Bilirubin 0.5 AST 17 ALT 13 Alkaline Phosphatase 149 H Total Protein 5.4 L Albumin 3.3 L Globulin 2.1 L Albumin/Globulin Ratio 1.6 Impressions Impression: # Stool impaction with obstipation constipation improved with GoLytely Rule out any obstructing lesion in the colon Additional GoLytely Consent obtained for colonoscopy scheduled for tomorrow Assessment & Plan A&P Narrative # Stool impaction with obstipation constipation most likely due to the overuse of narcotics Plan Clear liquid diet Agree with Maia Recommend manual disimpaction It will take time but it will clear out Will follow the patient closely Proctitis is most likely due to stool impaction Will follow the patient Thank you very much for the opportunity to participate in the care of this patient Other medical problems include # Diabetes mellitus type 2 # Essential hypertension # Spinal stenosis # Gastric bypass surgery # Bedridden Time Spent With Patient Time: Total time spent is greater than 50% in coordination of care (as documented) at patient's floor/unit and/or counseling patient:
[2024-06-19] MEDS: ZOLPIDEM 5 MG TABLET 10 MG PO (23:17)
[2024-06-20] VITALS (7 sets, daily range): BP systolic 141–147; BP diastolic 81–97; PULSE 74–87; RESP 16–98; TEMP 36.2–36.6; O2SAT 97–99
--- NOTE | 2024-06-20 03:42 | PC.NURSE ---
Pt refused colonoscopy scheduled for 06/20/24. Dr. Nolan spoke to patient over the phone and pt stated that she did not want the colonoscopy at this time. Pt told dr. Nolan that she wanted to focus on the rehab for the hip sx she got back on 06/01/24. Okay to cancel the consult if patient refused colonoscopy per Dr. Nolan.
[2024-06-20 05:56] LABS: Basophils % (Auto) 0 % (0-2.5); Eosinophils # (Auto) 0.5 Thou/mm3 (0.0-0.5); Eosinophils % (Auto) 5 % (0-10); Immature Granulocytes % (Auto) 1 % (0-0); Immature Granulocytes Auto 0.05 Thou/mm3 (0.00-0.00); Lymphocytes # (Auto) 1.7 Thou/mm3 (1.0-4.8); Lymphocytes % (Auto) 17 % (10-50); Mean Corpuscular HGB Conc 31.9 g/dl (31.0-37.0); Mean Corpuscular Hemoglobin 28.4 pg (25.0-35.0); Mean Corpuscular Volume 89 fL (80-100); Monocytes # (Auto) 0.4 Thou/mm3 (0.0-0.8); Monocytes % (Auto) 5 % (0-12); Neutrophils % (Auto) 73 % (37-80); Nucleated Red Blood Cell % 0 /100 WBC (0); Platelet Count 387 Thou/mm3 (140-440); RDW Standard Deviation 50.5 fL (36.4-46.3); Red Blood Count 2.92 Miln/mm3 (4.00-5.20); White Blood Count 9.7 Thou/mm3 (3.6-11.0)
[2024-06-20 06:07] LABS: Hemoglobin 8.3 g/dL (12.0-16.0)
--- NOTE | 2024-06-20 06:08 | PC.NURSE ---
Pt refused bladder scan during this shift. Patient did not report any discomfort, pain or pressure upon assessment.
[2024-06-20 06:27] LABS: Alanine Aminotransferase 9 U/L (10-49); Albumin/Globulin Ratio 1.4 (1.2-2.2); Alkaline Phosphatase 135 U/L (46-116); Anion Gap 12 (7-16); Aspartate Amino Transferase 16 U/L (0-34); BUN/Creatinine Ratio 18 Ratio (12-20); Bilirubin,Total 0.4 mg/dL (0.3-1.2); Blood Urea Nitrogen 11 mg/dL (9-23); Calcium (Corrected) 9.8 mg/dL (8.5-10.1); Chloride 108 mMol/L (98-107); Creatinine (Component) 0.6 mg/dL (0.6-1.3); Estimated Creatinine Clearance 83.9 mL/min (>60); Globulin 2.2 gm/dL (2.3-3.5); Glucose 68 mg/dL (74-106); Magnesium 1.6 mg/dL (1.6-2.6); Osmolality,Calculated 278 (275-295); Phosphorous 3.2 mg/dL (2.4-5.1); Potassium 3.4 mMol/L (3.4-5.1); Sodium 141 mMol/L (136-145); Total Protein 5.2 gm/dL (5.7-8.2); eGFR > 60 See Note
--- NOTE | 2024-06-20 06:41 | PC.NURSE ---
patient refused bladder scan x2
[2024-06-20] MEDS: SENNA TABLET 1 TAB PO (08:19)
[2024-06-20] MEDS: ENOXAPARIN SOD INJ 40 MG/0.4 ML SYRINGE SC (08:19)
[2024-06-20] MEDS: Lisinopril 20 MG TABLET PO (08:19)
[2024-06-20] MEDS: metFORMIN 500 MG TABLET PO ×2 (08:19→18:00)
--- NOTE | 2024-06-20 09:25 | PC.SS ---
Follow up note 06-19-24: Pt is from [facility] and will return at d/c. Pt is alert/oriented. Pt was admitted for Constipation. Pt was waiting to have bowel movement. Pt requires assistance with ADLs and has been working with PT at SNF. Pt named her friend, Marcelo Castley medical decision maker if she is unable. DC Plan: Return to [facility] Next of Kin: Marcelo Hope, friend, phone# [phone]
[2024-06-20] MEDS: ACETAMINOPHEN 325 MG TABLET 650 MG PO (09:44)
--- NOTE | 2024-06-20 13:00 | PD.IMPROG ---
Documentation for date of: 06/20/24 Subjective Subjective Interval history: Had a long discussion with the patient She has refused to do a colonoscopy at least at this moment May come and see me as an outpatient Maia prep and colonoscopy orders canceled Exam Vital Signs Temp Pulse Resp BP Pulse Ox O2 Del Method O2 Flow Rate 97.6 F 79 18 141/82 H 98 Room Air 2 06/20/24 11:53 06/20/24 11:53 06/20/24 11:53 06/20/24 11:53 06/20/24 11:53 06/20/24 11:53 06/20/24 04:00 Objective Labs 06/20/24 04:55 06/20/24 04:55 Labs: Laboratory Results - last 24 hr 06/20/24 04:55 WBC 9.7 RBC 2.92 L Hgb 8.3 L Hct 26.0 L MCV 89 MCH 28.4 MCHC 31.9 RDW Std Deviation 50.5 H Plt Count 387 D Neut % (Auto) 73 Lymph % (Auto) 17 [place] % (Auto) 5 Eos % (Auto) 5 Baso % (Auto) 0 Neut # (Auto) 7.0 Lymph # (Auto) 1.7 [place] # (Auto) 0.4 Eos # (Auto) 0.5 Baso # (Auto) 0.0 Immature Gran # (Auto) 0.05 H Absolute Nucleated RBC 0.00 Immature Gran % 1 H Nucleated RBC % 0 Sodium 141 Potassium 3.4 Chloride 108 H Carbon Dioxide 21.0 Anion Gap 12 BUN 11 Creatinine 0.6 Estim Creat Clear Calc 83.9 eGFR > 60 BUN/Creatinine Ratio 18 Glucose 68 L Calculated Osmolality 278 Calcium 9.0 Corrected Calcium 9.8 Phosphorus 3.2 Magnesium 1.6 Total Bilirubin 0.4 AST 16 ALT 9 L Alkaline Phosphatase 135 H Total Protein 5.2 L Albumin 3.0 L Globulin 2.2 L Albumin/Globulin Ratio 1.4 Impressions Impression: # Obstipation constipation resolving Patient refused colonoscopy Patient should on discharge be on MiraLAX once a day and Senokot once a day along with more water intake and more plant-based diet Assessment & Plan A&P Narrative # Stool impaction with obstipation constipation most likely due to the overuse of narcotics Plan Clear liquid diet Agree with Maia Recommend manual disimpaction It will take time but it will clear out Will follow the patient closely Proctitis is most likely due to stool impaction Will follow the patient Thank you very much for the opportunity to participate in the care of this patient Other medical problems include # Diabetes mellitus type 2 # Essential hypertension # Spinal stenosis # Gastric bypass surgery # Bedridden Time Spent With Patient Time: Total time spent is greater than 50% in coordination of care (as documented) at patient's floor/unit and/or counseling patient:
--- NOTE | 2024-06-20 14:18 | PC.SS ---
Addendum entered by Sunshine Armstrong [facility] 06/20/24 15:12: Marcelo Hope, patient's friend, phone# [phone] was also notified. Addendum entered by Sunshine Armstrong [facility] 06/20/24 15:11: ETA 6:15pm [facility]. Bed side nurse and [facility] staff notified. Addendum entered by Sunshine Armstrong [facility] 06/20/24 14:51: Patient is agreeable with returning to [facility]. Patient is requesting transportation as she does not have funds to pay. [facility] transport services contacted. Pending ETA. Addendum entered by Sunshine Armstrong [facility] 06/20/24 14:22: Contacted Britney with [employer], informs patient can return back to [facility] and they will send authorization to the facility. Original Note: SS update: patient has d/c orders. Patient is to return to [facility]. [facility] staff informs they can accept the patient as long as [employer] gives authorization for patient to return back.
--- NOTE | 2024-06-20 15:41 | PC.NURSE ---
GAVE REPORT TO WENDI AT [facility], NOTIFIED HIM REGARDING BOWEL REGIMEN, FOLLOW UP WITH PCP AND LETTERPRESS SETTER, ALSO PATIENT LEVEL OF AMBULATION OF 3 STEPS FORWARD AND 3 BACK PER PHYSICAL THERAPY, NOTIFIED HIM OF SKIN ASSESSMENT, AND SMALL CLOSED BLISTER ON ABDOMEN. SS SETUP TRANSPORT AT 1815.
--- NOTE | 2024-06-20 16:39 | PD.RESDS ---
Planned Discharge Date 06/20/24 DS: Providers Provider Date of admission: 06/17/24 16:39 Primary care physician: Agustín Luna MD Admitting Provider: Keegan Ugarte MD Attending Provider on Admission: Power Figueroa MD Consults: 06/19/24 14:20 PT [Referral Physical Therapy] Routine Comment: Physician Instructions: Attending Provider on DC: Jimmy Velasco MD Discharging Provider: Jimmy Velasco MD DS: Diagnosis Problem List Completed Was Problem List Reviewed/Reconciled?: Yes Hospital Course Hospital Course Hospital course: Ms. Sun is a 68-year-old female who is a Jainism, with past medical history of hypertension, type 2 diabetes, osteoporosis, spinal stenosis who presented to [facility] with a chief complaint of abdominal discomfort and constipation. Patient was recently at [facility] following ORIF on June 01, 2024 and was discharged to a [facility] facility. Patient informed us that she has not had a bowel movement and she had been taking pain regimens at the SNF with last bowel movement noted to be June 01. She stated that her abdominal discomfort was associated with nausea and vomiting and that she had received 3 Fleet enemas at the [facility] facility without any improvement in her symptoms. Patient had tachycardia in the emergency department and leukocytosis with a WBC count of 15.4 and was mildly anemic with hemoglobin of 10. An abdominal x-ray was ordered for the patient which revealed moderate to large amounts of stool throughout her colon and a mild small bowel ileus so a CT abdomen pelvis was ordered which revealed fecal loading and large amounts of stool throughout the colon and large amounts of stool in the rectum with a proctitis pattern. Patient received a soapsuds enema in the ED without success and then was admitted to floors for opioid-induced constipation. She was given a GoLytely prep to encourage a bowel movement and after 24 hours she continued to have significant constipation. GI was consulted at that point and performed a slight disimpaction with mild improvement in symptoms. The following day patient had a large bowel movement and had significant improvement in her symptoms. Due to the patient's large amounts of stool throughout the colon she was also suffering from urinary retention that was due to the obstruction from the stool. She received bladder scans as needed and straight cath as needed to help evacuate her urine. Once patient's stool problem had resolved her urine retention had resolved as well and she had returned to baseline health. She was scheduled to undergo a colonoscopy with GI but refused and wanted to do outpatient follow-up with gastroenterology. Patient will benefit from colonoscopy to assess for any pathologic issues associated with her colon. Patient is recommended to follow-up with a strict bowel regimen that includes a high-fiber intake, low red meat diet, regular exercise, 64 ounces of water, regular use of docusate and senna to motivate soft stool passage. Patient will be sent home with no new medications. Plan for discharge discussed with supervising attending Dr. Carolina Velasco M.D. PGY-3 Ms. Sun is a 68-year-old female, a Jehovah witness, with past medical history significant for hypertension, diabetes mellitus, osteoporosis and spinal stenosis presented to the ED complaining of increasing abdominal discomfort and constipation. Patient was hospitalized on 05/31/2024 after a ground-level fall causing Displaced intertrochanter fracture left hip; patient is status post Open reduction internal fixation with trochanteric fixation nail on 06/01/24. Patient states that her last bowel movement was on 06/01 and since then she has been taking pain medications and in rehab patient was started on Percocet twice daily on 07 June. Patient also states that she along with abdominal discomfort she has had nausea and vomiting. At the rehab center patient received 3 Fleet enemas without successful bowel movement. Patient has history of hemorrhoids which is causing her increasing amount of pain and unable to have a bowel movement. Patient denies any prior history of similar episodes. # Opiate induced constipation -Pt's last bowel movement was on 06/01/24. Pt has been taking morphine during hospitalization and Percocet in rehab for pain control status post hip fixation surgery. Other contributory factors include immobility likely due to recent surgery -In rehab patient was given Fleet enema x3 without successful bowel movement -In the ED patient received soapsuds enema and manual disimpaction without success -abdominal xray- Moderate to large amounts of residual throughout the colon, Mild small bowel ileus CT abdomen/pelvis- Fecal loading, large amounts of stool throughout the colon, Large amounts of stool in the rectum with proctitis pattern Plan: -Full liquid diet, encouraged oral hydration -GoLytely ordered -Suppository ordered -Avoid opioids -Consult GI appreciate recommendations, Dr. Nolan suggests that he may do fecal disimpaction. Patient supposedly did have a large movement on June 19, 2024. #Acute urinary retention Likely secondary to large amount of stool in the rectum Patient has straight cath yesterday with over 1000 cc of urine removed. Will continue with bladder scans every 6 hourly to assess for urine volume. If urine volume greater than 300 cc then we will straight cath patient. s/p Open reduction internal fixation with trochanteric fixation nail. #L Hip intertrochanteric fracture #Ground level fall -Patient had a mechanical fall and underwent fixation surgery on 06/01/24 -Currently in rehab s/p surgery #Chronic Normocytic Anemia -Hgb 9.0, Hct 27.7 MCV 87 -Pt is a [employer], refuses blood products -During previous admission on 05/31: B12/folate nl; Iron 57 TIBC 359 iron sat 15 ferritin 8 Plan: -Will monitor daily CBC -advised pt's against the use of ibuprofen as it increases risks for gastric ulcers and to switch ibuprofen to Tylenol at home #Hx of HTN -Home meds lisinopril 20mg po -BP stable -resumed home Lisinopril #Hx of DM II takes metformin 500mg BID at home; -HA1C 8.9 on 06/01/24 -resumed home meds #Hx of spinal stenosis -Follows with Neurosurgery -outpatient management Disposition: Medsurg DVT Prophylaxis: enoxaparin 40mg Qdaily SCD QSHIFT Diet: full liquid diet Code status: Full Status at Discharge Functional status at discharge: uses cane/walker Overall status at discharge: patient is progressing back to baseline Time Spent with Patient Time attestation: Total time spent providing and/or coordinating discharge services: Time spent: Greater than 30 minutes Exam Vital Signs Temp Pulse Resp BP Pulse Ox O2 Del Method O2 Flow Rate 97.6 F 82 18 147/84 H 99 Room Air 2 06/20/24 16:00 06/20/24 16:00 06/20/24 16:00 06/20/24 16:00 06/20/24 16:00 06/20/24 16:00 06/20/24 04:00 Discharge Plan Plan Patient Disposition: Xfer Skilled Nsg Fac (SNF) Disposition Comment: Stable for admit Care Plan Goals: Patient is medically cleared for discharge. She is recommended follow-up with gastroenterology for further workup in regards to her proctitis Patient is recommended to follow-up with a strong bowel regimen with docusate and senna daily to motivate soft stool passage. Prescriptions/Referrals Prescriptions/Med Rec: Continued lisinopril 20 mg Tablet 20 mg PO QDAY hydrochlorothiazide 25 mg Tablet 25 mg PO QAM zolpidem [Ambien] 10 mg Tablet 10 mg PO HS cyclobenzaprine 5 mg tablet 5 mg PO Q8H Qty: 7 0RF docusate sodium [Stool Softener] 100 mg capsule 100 mg PO QDAY PRN (Reason: constipation) Qty: 30 0RF Referrals: Rachel Nolan MD [Physician] - Agustín Luna MD [Primary Care Provider] - Patient/Caregiver Discharge Instructions Print Language: Ukrainian Stand Alone Forms: Juli Award Info., Patient Portal Info Letter Discharge Order Discharge Orders: Discharge (Routine); Ordered 06/20/24 Ordered By: Scout Ace Quality Discharge Quality Measures none MD Attestestation MD Attestation I reviewed labs, imaging, EKG, home medications and prior available records. Face to face evaluation was performed by me. I have personally examined the patient and discussed assessment and plan with the IM team. I reviewed the resident note and agree with the plan with exceptions as below. Severe constipation, resolved Urinary retention, resolved Hypoglycemia, secondary to poor oral intake Continue constipation management as needed Avoid opiate use Encourage oral intake and monitor fingersticks Time spent is 40 minutes. More than 50% of the time was spent on patient education and coordination of care.
== END 2024-06-20 18:26 | disposition skilled nursing facility (03) | DRG 390 ==
LOC: SERX 14:45 → SERHOLD 17:10 → S3SX 17:51
PROVIDERS: Emergency Medicine; Admitting Provider Internal Medicine; Emergency Provider Emergency Medicine; PCP Family Medicine; Visit Provider Student in an Organized Health Care Education/Training Program
DX: K56.41 Fecal impaction (principal); D64.9 Anemia, unspecified; R33.8 Other retention of urine; D72.829 Elevated white blood cell count, unspecified; T40.605A Adverse effect of unspecified narcotics, initial encounter; M81.0 Age-related osteoporosis without current pathological fracture; E11.9 Type 2 diabetes mellitus without complications; I10 Essential (primary) hypertension; M48.00 Spinal stenosis, site unspecified; Z98.890 Other specified postprocedural states; S72.142D Displaced intertrochanteric fracture of left femur, subsequent encounter for closed fracture with routine healing; Z87.19 Personal history of other diseases of the digestive system; Z98.84 Bariatric surgery status; Z79.899 Other long term (current) drug therapy; Z53.20 Procedure and treatment not carried out because of patient's decision for unspecified reasons; Z74.01 Bed confinement status; Z79.84 Long term (current) use of oral hypoglycemic drugs; Z90.710 Acquired absence of both cervix and uterus; W18.30XD Fall on same level, unspecified, subsequent encounter
CPT/HCPCS: 36415; 74018; 74177; 80053; 80061; 81001; 83735; 84100; 84443; 85025; 85610; 85730; 87081; 96360; 96361; 97162; 99285; A4649; J1650; J7030; J7040; Q9967; A9270

== ENCOUNTER → 2024-08-15 | Outpatient (CLI) | payer OTHER, SELFPAY ==
[2024-08-15 12:54] LABS: Basophils % (Auto) 1 % (0-2.5); Eosinophils # (Auto) 0.1 Thou/mm3 (0.0-0.5); Eosinophils % (Auto) 2 % (0-10); Hematocrit 31.4 % (36.0-46.0); Immature Granulocytes % (Auto) 0 % (0-0); Immature Granulocytes Auto 0.01 Thou/mm3 (0.00-0.00); Lymphocytes # (Auto) 1.8 Thou/mm3 (1.0-4.8); Lymphocytes % (Auto) 30 % (10-50); Mean Corpuscular HGB Conc 31.8 g/dl (31.0-37.0); Mean Corpuscular Hemoglobin 27.9 pg (25.0-35.0); Mean Corpuscular Volume 88 fL (80-100); Monocytes # (Auto) 0.4 Thou/mm3 (0.0-0.8); Monocytes % (Auto) 7 % (0-12); Neutrophils # (Auto) 3.5 Thou/mm3 (1.8-7.7); Neutrophils % (Auto) 59 % (37-80); Nucleated Red Blood Cell % 0 /100 WBC (0); Platelet Count 209 Thou/mm3 (140-440); RDW Standard Deviation 51.5 fL (36.4-46.3); Red Blood Count 3.59 Miln/mm3 (4.00-5.20); White Blood Count 5.8 Thou/mm3 (3.6-11.0)
[2024-08-15 13:13] LABS: T4 (Thyroxine) 9.7 mcg/dL (4.5-10.9); Vitamin D 25 Hydroxy Total 66.9 ng/mL (7.3-40.2)
[2024-08-15 13:19] LABS: Alanine Aminotransferase 17 U/L (10-49); Albumin, Serum 3.7 gm/dL (3.4-4.8); Albumin/Globulin Ratio 1.5 (1.2-2.2); Alkaline Phosphatase 152 U/L (46-116); Anion Gap 10 (7-16); Aspartate Amino Transferase 17 U/L (0-34); BUN/Creatinine Ratio 20 Ratio (12-20); Bilirubin,Total 0.4 mg/dL (0.3-1.2); Blood Urea Nitrogen 16 mg/dL (9-23); Calcium (Corrected) 9.2 mg/dL (8.5-10.1); Carbon Dioxide 28.2 mMol/L (20.0-31.0); Cardiac Risk Estimate 1.9 RATIO (3.7-5.6); Chloride 104 mMol/L (98-107); Cholesterol 174 mg/dL (132-200); Creatinine (Component) 0.8 mg/dL (0.6-1.3); Globulin 2.5 gm/dL (2.3-3.5); Glucose 148 mg/dL (74-106); HDL Cholesterol 90 mg/dL (40-60); LDL Cholesterol,Calculated 61 mg/dL (0-130); Osmolality,Calculated 287 (275-295); Potassium 3.2 mMol/L (3.4-5.1); Sodium 142 mMol/L (136-145); Thyroid Stimulating Hormone 2.31 uIU/mL (0.55-4.78); Total Protein 6.2 gm/dL (5.7-8.2); Triglycerides 115 mg/dL (30-150); eGFR > 60 See Note
[2024-08-15 15:25] LABS: Glucose Estimated Average 137 mg/dL (80-131); Hemoglobin A1C 6.4 % Hgb (4.8-6.0)
== END | disposition home or self-care (01) ==
LOC: SLDO 10:41
PROVIDERS: PCP Nurse Practitioner Family; Referring Provider Nurse Practitioner Family; Visit Provider Nurse Practitioner Family
DX: I10 Essential (primary) hypertension (principal); E78.00 Pure hypercholesterolemia, unspecified; E11.65 Type 2 diabetes mellitus with hyperglycemia; E55.9 Vitamin D deficiency, unspecified
CPT/HCPCS: 36415; 80053; 80061; 82306; 83036; 84436; 84443; 85025

== ENCOUNTER → 2024-12-28 | Outpatient (CLI) | payer MEDICARE, MEDICAID, SELFPAY ==
[2024-12-28 10:39] LABS: Misc Send Out* See Sep Rpt
[2024-12-28 11:13] LABS: Basophils # (Auto) 0.0 Thou/mm3 (0.0-0.2); Basophils % (Auto) 0 % (0-2.5); Eosinophils # (Auto) 0.2 Thou/mm3 (0.0-0.5); Eosinophils % (Auto) 3 % (0-10); Hematocrit 29.7 % (36.0-46.0); Hemoglobin 9.3 g/dL (12.0-16.0); Immature Granulocytes Auto 0.01 Thou/mm3 (0.00-0.00); Lymphocytes # (Auto) 1.8 Thou/mm3 (1.0-4.8); Lymphocytes % (Auto) 30 % (10-50); Mean Corpuscular HGB Conc 31.3 g/dl (31.0-37.0); Mean Corpuscular Hemoglobin 24.5 pg (25.0-35.0); Mean Corpuscular Volume 78 fL (80-100); Monocytes # (Auto) 0.3 Thou/mm3 (0.0-0.8); Monocytes % (Auto) 5 % (0-12); Neutrophils # (Auto) 3.6 Thou/mm3 (1.8-7.7); Neutrophils % (Auto) 62 % (37-80); Nucleated Red Blood Cell # 0.00 Thou/mm3 (0.00-0.00); Nucleated Red Blood Cell % 0 /100 WBC (0); Platelet Count 236 Thou/mm3 (140-440); RDW Standard Deviation 45.9 fL (36.4-46.3); Red Blood Count 3.80 Miln/mm3 (4.00-5.20); White Blood Count 5.8 Thou/mm3 (3.6-11.0)
[2024-12-28 11:24] LABS: Glucose Estimated Average 177 mg/dL (80-131); Hemoglobin A1C 7.8 % Hgb (4.8-6.0)
[2024-12-28 11:31] LABS: T4 (Thyroxine) 8.9 mcg/dL (4.5-10.9)
[2024-12-28 11:33] LABS: Alanine Aminotransferase 27 U/L (10-49); Albumin, Serum 4.1 gm/dL (3.4-4.8); Albumin/Globulin Ratio 1.5 (1.2-2.2); Alkaline Phosphatase 142 U/L (46-116); Anion Gap 14 (7-16); Aspartate Amino Transferase 31 U/L (0-34); BUN/Creatinine Ratio 18 Ratio (12-20); Bilirubin,Total 0.3 mg/dL (0.3-1.2); Blood Urea Nitrogen 18 mg/dL (9-23); Calcium 9.1 mg/dL (8.3-10.6); Calcium (Corrected) 9.1 mg/dL (8.5-10.1); Carbon Dioxide 26.0 mMol/L (20.0-31.0); Cardiac Risk Estimate 1.9 RATIO (3.7-5.6); Chloride 103 mMol/L (98-107); Cholesterol 154 mg/dL (132-200); Creatinine (Component) 1.0 mg/dL (0.6-1.3); Globulin 2.7 gm/dL (2.3-3.5); Glucose 150 mg/dL (74-106); HDL Cholesterol 83 mg/dL (40-60); LDL Cholesterol,Calculated 44 mg/dL (0-130); Osmolality,Calculated 289 (275-295); Potassium 3.7 mMol/L (3.4-5.1); Sodium 143 mMol/L (136-145); Thyroid Stimulating Hormone 3.59 uIU/mL (0.55-4.78); Total Protein 6.8 gm/dL (5.7-8.2); Triglycerides 137 mg/dL (30-150); eGFR > 60 See Note
[2024-12-28 11:34] LABS: Vitamin D 25 Hydroxy Total 54.1 ng/mL (7.3-40.2)
== END | disposition home or self-care (01) ==
PROVIDERS: PCP Nurse Practitioner Family; Referring Provider Nurse Practitioner Family; Visit Provider Nurse Practitioner Family
DX: I10 Essential (primary) hypertension (principal); E11.65 Type 2 diabetes mellitus with hyperglycemia; E55.9 Vitamin D deficiency, unspecified; E78.00 Pure hypercholesterolemia, unspecified; Z79.891 Long term (current) use of opiate analgesic
CPT/HCPCS: 36415; 80053; 80061; 80307; 82306; 83036; 84436; 84443; 85025